=== PATIENT | male | born 1955 | race Caucasian/White ===

== ENCOUNTER → 2016-10-18 | Outpatient (CLI) | payer MEDICARE ==
[~2016-10-18] MED LIST: /OXAZ10CA OR; ASPI81TA83 OR; ASPI81TA85 PO; BABY81CH OR; CELE40TA PO; COUM7.5T PO; FAMO20TA PO; FOLI1TAB OR; FOLI1TAB2 PO; LABE10TAB PO; LIDO5DIS36 TD; LISI10TA4 OR; LISI10TA4 PO; MULTIVIT PO; NICO21DI5 TD; OXYC30TA72 PO; PERC5TAB6 PO; PLAV75TA2 OR; PROT1TAB2 PO; SERAX PO; SOMA350T OR; SOMA350T PO; TYLE325T5 PO; VITA100T2 PO; VITA50TA12 IM; VITA50TA12 OR; ZOCO20TA PO; ZOCO40TA OR; [UNRECOGNIZED DRUG - OTHER] PO; drisdol PO; normodyne PO
--- NOTE | 2016-10-18 15:57 | REP ---
PA CHEST WITH LEFT RIB SERIES, 10/18/2016: Study was performed upright. Comparison made with prior chest radiograph 04/06/2015 and 03/25/2015. The cardiomediastinal silhouette is of normal size. Interstitial changes are seen with lower lobe predominance, may be secondary to technical factors or fibrotic scarring. Minimally displaced fracture is seen within the left 6th anterior rib. Visualized portions of the clavicles, scapulae are within normal limits. IMPRESSION: 1. Minimally displaced fracture of the left 6th anterior rib. 2. Bibasilar interstitial changes may be contributed to by technical factors and/or fibrotic scarring. Signed by Anu Pérez MD 10/18/2016 10:24 P
== END ==
LOC: M LRY 14:32
PROVIDERS: ATTEND Nurse Practitioner Family
DX: S22.32XA Fracture of one rib, left side, initial encounter for closed fracture (principal); J84.89 Other specified interstitial pulmonary diseases; W31.89XA Contact with other specified machinery, initial encounter; Y92.9 Unspecified place or not applicable; Y93.89 Activity, other specified; Y99.8 Other external cause status; X58.XXXA Exposure to other specified factors, initial encounter
CPT/HCPCS: 71101; 96372; G0463; J1885

== ENCOUNTER → 2016-11-21 | Outpatient (CLI) | payer MEDICARE ==
[2016-11-21 14:45] LABS: MEAN CORPUSCULAR HEMOGLOBIN 34.8 pg (27.0-33.0); MEAN CORPUSCULAR HGB CONC 34.1 g/dl (32.0-36.5); MEAN CORPUSCULAR VOLUME 102.2 fl (80.0-96.0); RED CELL DISTRIBUTION WIDTH 12.6 % (11.5-14.5); WHITE BLOOD COUNT 5.6 K/mm3 (4.0-10.0)
[2016-11-21 15:12] LABS: ALBUMIN 3.9 GM/DL (3.2-5.2); ALBUMIN/GLOBULIN RATIO 1.26 (1.00-1.93); ALKALINE PHOSPHATASE 118 U/L (45-117); ALT/SGPT 65 U/L (12-78); ANION GAP 9 MEQ/L (8-16); AST/SGOT 58 U/L (15-37); BILIRUBIN,TOTAL 0.4 MG/DL (0.2-1.0); BLOOD UREA NITROGEN 14 MG/DL (7-18); CALCIUM LEVEL 8.8 MG/DL (8.8-10.2); CARBON DIOXIDE LEVEL 27 MEQ/L (21-32); CHLORIDE LEVEL 101 MEQ/L (98-107); CHOLESTEROL LEVEL 159 MG/DL (<200); CREATININE FOR GFR 0.88 MG/DL (0.70-1.30); GLOMERULAR FILTRATION RATE > 60.0 (>49); GLUCOSE, FASTING 97 MG/DL (80-110); POTASSIUM SERUM 4.5 MEQ/L (3.5-5.1); SODIUM LEVEL 137 MEQ/L (136-145); TRIGLYCERIDES LEVEL 55 MG/DL (<150); URIC ACID 4.4 MG/DL (3.5-7.2)
== END ==
LOC: M LAB 14:06
PROVIDERS: ATTEND Physician Assistant
DX: I10 Essential (primary) hypertension (principal); R73.09 Other abnormal glucose; E78.2 Mixed hyperlipidemia; M10.9 Gout, unspecified; E55.9 Vitamin D deficiency, unspecified

== ENCOUNTER → 2017-01-21 | Outpatient (CLI) | payer MEDICARE ==
--- NOTE | 2017-01-21 12:09 | REP ---
Right wrist four views : There is no fracture or dislocation. Mineralization and joint spaces are normal. There are no calcifications or foreign bodies. Impression: Negative right wrist . Signed by Perez Lopez MD 01/21/2017 12:01 P
--- NOTE | 2017-01-21 12:10 | REP ---
Right ankle four views: There is soft tissue edema laterally. There is no fracture or dislocation. The mortise is symmetric. Mineralization is normal. There are no calcifications or foreign bodies. Impression: Soft tissue edema laterally. No fracture or dislocation. Signed by Perez Lopez MD 01/21/2017 12:02 P
--- NOTE | 2017-01-21 12:11 | REP ---
Right foot four views: There is no fracture or dislocation. 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 Mineralization and joint spaces otherwise are unremarkable. No calcifications or foreign bodies. Signed by Perez Lopez MD 01/21/2017 12:03 P
== END ==
LOC: M LRY 11:12
PROVIDERS: ATTEND Nurse Practitioner Family
DX: R60.0 Localized edema (principal); S99.911A Unspecified injury of right ankle, initial encounter; S69.91XA Unspecified injury of right wrist, hand and finger(s), initial encounter; W18.31XA Fall on same level due to stepping on an object, initial encounter; Y93.89 Activity, other specified; Y92.9 Unspecified place or not applicable; Y99.8 Other external cause status
CPT/HCPCS: 73110; 73610; 73630; 96372; G0463; J1885

== ENCOUNTER → 2017-02-08 | Outpatient (CLI) | payer MEDICARE ==
--- NOTE | 2017-02-08 16:29 | REP ---
RIGHT FOOT: REASON: Trauma weeks ago. COMPARISON: 01/21/2017 There is a slight hallux valgus deformity with degenerative changes seen involving the first metatarsal phalangeal joint. There is no significant change compared to the prior exam. There is no evidence of an acute fracture. IMPRESSION: Chronic changes as described above, however, the patient is complaining of persistent pain. MRI is recommended. Signed by Stanislav Bran DO 02/08/2017 04:55 P
== END ==
LOC: M LRY 10:07
PROVIDERS: ATTEND Physician Assistant
DX: M79.672 Pain in left foot (principal)
CPT/HCPCS: 73630; G0463

== ENCOUNTER → 2017-10-17 | Outpatient (REF) | payer MEDICARE ==
[2017-10-17 18:28] LABS: HEMATOCRIT 38.4 % (42.0-52.0); HEMOGLOBIN 12.9 g/dl (14.0-18.0); MEAN CORPUSCULAR HEMOGLOBIN 32.9 pg (27.0-33.0); MEAN CORPUSCULAR HGB CONC 33.6 g/dl (32.0-36.5); PLATELET COUNT, AUTOMATED 202 10^3/uL (150-450); RED BLOOD COUNT 3.92 10^6/uL (4.30-6.10); RED CELL DISTRIBUTION WIDTH 12.8 % (11.5-14.5); WHITE BLOOD COUNT 5.8 10^3/uL (4.0-10.0)
[2017-10-17 18:44] LABS: ALBUMIN/GLOBULIN RATIO 1.43 (1.00-1.93); ALKALINE PHOSPHATASE 68 U/L (45-117); ALT/SGPT 24 U/L (12-78); ANION GAP 6 MEQ/L (8-16); AST/SGOT 16 U/L (7-37); BILIRUBIN,TOTAL 0.3 MG/DL (0.2-1.0); BLOOD UREA NITROGEN 15 MG/DL (7-18); CALCIUM LEVEL 8.8 MG/DL (8.8-10.2); CARBON DIOXIDE LEVEL 28 MEQ/L (21-32); CHLORIDE LEVEL 106 MEQ/L (98-107); CHOLESTEROL LEVEL 148 MG/DL (<200); CHOLESTEROL RISK RATIO 2.114 (<5); CREATININE FOR GFR 1.06 MG/DL (0.70-1.30); GLOMERULAR FILTRATION RATE > 60.0 (>49); GLUCOSE, FASTING 100 MG/DL (80-110); HDL CHOLESTEROL 70 MG/DL (>40); NON-HDL-C 78 MG/DL; POTASSIUM SERUM 4.4 MEQ/L (3.5-5.1); PSA SCREENING 2.28 NG/ML (< 4.0); SODIUM LEVEL 140 MEQ/L (136-145); TOTAL PROTEIN 6.8 GM/DL (6.4-8.2); TRIGLYCERIDES LEVEL 65 MG/DL (<150); URIC ACID 4.5 MG/DL (3.5-7.2)
[2017-10-17 18:56] LABS: ESTIMATED AVERAGE GLUCOSE 103 MG/DL (60-110); HEMOGLOBIN A1c 5.2 %
== END ==
LOC: M SFHCLERA 12:36
DX: I10 Essential (primary) hypertension (principal); R73.01 Impaired fasting glucose; Z86.73 Personal history of transient ischemic attack (TIA), and cerebral infarction without residual deficits; R97.20 Elevated prostate specific antigen [PSA]; M1A.0720 Idiopathic chronic gout, left ankle and foot, without tophus (tophi)
CPT/HCPCS: 84550

== ENCOUNTER → 2017-12-10 | Outpatient (REF) | payer MEDICARE ==
[2017-12-10 15:51] LABS: ALBUMIN 3.8 GM/DL (3.2-5.2); ANION GAP 5 MEQ/L (8-16); BLOOD UREA NITROGEN 16 MG/DL (7-18); CALCIUM LEVEL 8.8 MG/DL (8.8-10.2); CARBON DIOXIDE LEVEL 28 MEQ/L (21-32); CHLORIDE LEVEL 106 MEQ/L (98-107); CREATININE FOR GFR 0.96 MG/DL (0.70-1.30); GLOMERULAR FILTRATION RATE > 60.0 (>49); GLUCOSE, FASTING 92 MG/DL (70-100); PHOSPHORUS LEVEL 3.7 MG/DL (2.5-4.9); POTASSIUM SERUM 4.4 MEQ/L (3.5-5.1); SODIUM LEVEL 139 MEQ/L (136-145)
== END ==
LOC: M LABDRAW1 13:14
DX: M25.511 Pain in right shoulder (principal)
CPT/HCPCS: 80069

== ENCOUNTER → 2017-12-11 | Outpatient (CLI) | payer MEDICARE ==
[~2017-12-11] MED LIST changes: -/OXAZ10CA OR; -ASPI81TA83 OR; -ASPI81TA85 PO; -BABY81CH OR; -CELE40TA PO; -COUM7.5T PO; -FAMO20TA PO; -FOLI1TAB OR; -FOLI1TAB2 PO; -LABE10TAB PO; -LIDO5DIS36 TD; -LISI10TA4 OR; -LISI10TA4 PO; -MULTIVIT PO; -NICO21DI5 TD; -OXYC30TA72 PO; -PERC5TAB6 PO; -PLAV75TA2 OR; +PROHANCE 279.3MG/ML 15ML VIAL (A9576) As Ordered; +PROHANCE 279.3MG/ML 5ML VIAL (A9576) As Ordered; -PROT1TAB2 PO; -SERAX PO; -SOMA350T OR; -SOMA350T PO; -TYLE325T5 PO; -VITA100T2 PO; -VITA50TA12 IM; -VITA50TA12 OR; -ZOCO20TA PO; -ZOCO40TA OR; -[UNRECOGNIZED DRUG - OTHER] PO; -drisdol PO; -normodyne PO
== END ==
LOC: M RAD 13:44
DX: R93.7 Abnormal findings on diagnostic imaging of other parts of musculoskeletal system (principal); M75.82 Other shoulder lesions, left shoulder; M25.712 Osteophyte, left shoulder
CPT/HCPCS: A9576

== ENCOUNTER → 2018-02-12 | Outpatient (REF) | payer MEDICARE ==
[2018-02-12 17:09] LABS: VITAMIN B12 LEVEL 1251 PG/ML (247-911)
[2018-02-12 17:14] LABS: ALBUMIN 4.2 GM/DL (3.2-5.2); ALKALINE PHOSPHATASE 76 U/L (45-117); ALT/SGPT 28 U/L (12-78); ANION GAP 8 MEQ/L (8-16); AST/SGOT 23 U/L (7-37); BILIRUBIN,TOTAL 0.5 MG/DL (0.2-1.0); BLOOD UREA NITROGEN 18 MG/DL (7-18); CALCIUM LEVEL 9.1 MG/DL (8.8-10.2); CARBON DIOXIDE LEVEL 26 MEQ/L (21-32); CHLORIDE LEVEL 99 MEQ/L (98-107); CREATININE FOR GFR 1.06 MG/DL (0.70-1.30); FERRITIN 65 NG/ML (26-388); GLOMERULAR FILTRATION RATE > 60.0 (>49); GLUCOSE, FASTING 100 MG/DL (70-100); IRON (FE) 79 UG/DL (65-175); POTASSIUM SERUM 5.1 MEQ/L (3.5-5.1); SODIUM LEVEL 133 MEQ/L (136-145); THYROID STIMULATING HORMONE 0.847 uIU/ML (0.358-3.740); TOTAL PROTEIN 7.2 GM/DL (6.4-8.2)
[2018-02-12 17:57] LABS: HEMATOCRIT 38.9 % (42.0-52.0); HEMOGLOBIN 13.3 g/dl (13.5-17.5); MEAN CORPUSCULAR HGB CONC 34.2 g/dl (32.0-36.5); MEAN CORPUSCULAR VOLUME 96.5 fl (80.0-96.0); PLATELET COUNT, AUTOMATED 220 10^3/uL (150-450); RED BLOOD COUNT 4.03 10^6/uL (4.30-6.10); RED CELL DISTRIBUTION WIDTH 12.5 % (11.5-14.5); WHITE BLOOD COUNT 6.7 10^3/uL (4.0-10.0)
== END ==
LOC: M SFHCLERA 12:20
DX: R53.83 Other fatigue (principal)
CPT/HCPCS: 83540

== ENCOUNTER → 2018-02-12 | Outpatient (CLI) | payer MEDICARE | LOC: M LRY 12:29 | DX: S97.122A Crushing injury of left lesser toe(s), initial encounter (principal); S92.532A Displaced fracture of distal phalanx of left lesser toe(s), initial encounter for closed fracture; X58.XXXA Exposure to other specified factors, initial encounter; Y92.89 Other specified places as the place of occurrence of the external cause; M19.072 Primary osteoarthritis, left ankle and foot | CPT/HCPCS: 73630; 83540 ==

== ENCOUNTER → 2018-11-12 | Outpatient (REF) | payer MEDICARE ==
[~2018-11-12] MED LIST changes: +/OXAZ10CA OR; +ASPI81TA83 OR; +ASPI81TA85 PO; +BABY81CH OR; +CELE40TA PO; +COUM7.5T PO; +FAMO20TA PO; +FOLI1TAB OR; +FOLI1TAB11 PO; +LABE10TAB PO; +LIDO5DIS41 TD; +LISI10TA4 OR; +LISI10TA4 PO; +MULTIVIT PO; +NICO21DI6 TD; +OXYC30TA72 PO; +PERC5TAB12 PO; +PLAV75TA2 OR; -PROHANCE 279.3MG/ML 15ML VIAL (A9576) As Ordered; -PROHANCE 279.3MG/ML 5ML VIAL (A9576) As Ordered; +PROT1TAB2 PO; +SERAX PO; +SOMA350T OR; +SOMA350T PO; +TYLE325T5 PO; +VITA100T8 PO; +VITA50TA12 IM; +VITA50TA12 OR; +ZOCO20TA PO; +ZOCO40TA OR; +[UNRECOGNIZED DRUG - OTHER] PO; +drisdol PO; +normodyne PO
[2018-11-12 17:56] LABS: ALBUMIN 4.2 GM/DL (3.2-5.2); ALT/SGPT 23 U/L (12-78); BILIRUBIN,TOTAL 0.4 MG/DL (0.2-1.0); BLOOD UREA NITROGEN 18 MG/DL (7-18); CALCIUM LEVEL 8.8 MG/DL (8.8-10.2); CARBON DIOXIDE LEVEL 26 MEQ/L (21-32); CHLORIDE LEVEL 94 MEQ/L (98-107); CHOLESTEROL LEVEL 135 MG/DL (<200); CHOLESTEROL RISK RATIO 1.776 (<5); FREE T4 0.84 NG/DL (0.76-1.46); GLOMERULAR FILTRATION RATE > 60.0 (>49); GLUCOSE, FASTING 85 MG/DL (70-100); HDL CHOLESTEROL 76 MG/DL (>40); LDL CHOLESTEROL 49 MG/DL (<100); NON-HDL-C 59 MG/DL; POTASSIUM SERUM 3.8 MEQ/L (3.5-5.1); SODIUM LEVEL 130 MEQ/L (136-145); THYROID STIMULATING HORMONE 0.878 uIU/ML (0.358-3.740); TOTAL PROTEIN 7.2 GM/DL (6.4-8.2); TRIGLYCERIDES LEVEL 49 MG/DL (<150); URIC ACID 5.6 MG/DL (3.5-7.2)
[2018-11-12 18:02] LABS: HEMATOCRIT 39.2 % (42.0-52.0); HEMOGLOBIN 13.5 g/dl (13.5-17.5); MEAN CORPUSCULAR HEMOGLOBIN 33.8 pg (27.0-33.0); MEAN CORPUSCULAR HGB CONC 34.4 g/dl (32.0-36.5); PLATELET COUNT, AUTOMATED 221 10^3/uL (150-450); WHITE BLOOD COUNT 6.7 10^3/uL (4.0-10.0)
[2018-11-14 13:59] LABS: ALBUMIN % 62.3 % (55.8-66.1); ALPHA-1-GLOBULIN % 4.7 % (2.9-4.9); ALPHA-2-GLOBULINS % 10.3 % (7.1-11.8); BETA-1-GLOBULINS % 6.4 % (4.7-7.2); BETA-2-GLOBULINS % 4.2 % (3.2-6.5)
[2018-11-14 14:00] LABS: ALBUMIN 4.49 GM/DL (3.29-5.55); ALPHA-1-GLOBULINS 0.34 GM/DL (0.17-0.41); ALPHA-2-GLOBULINS 0.74 GM/DL (0.42-0.99); BETA-1-GLOBULINS 0.46 GM/DL (0.28-0.60); GAMMA GLOBULIN % 12.1 % (11.1-18.8); GAMMA GLOBULINS 0.87 GM/DL (0.65-1.58)
[2018-11-20 00:07] LABS: ANTI THROMBIN 3 ANTIGEN IMMUNO 90 % (72-124); ANTI THROMBIN 3 FUNCT ACTIVITY 109 % (75-135); CARDIOLIPIN IGA ANTIBODY <9 APL U/mL (0-11); CARDIOLIPIN IGG ANTIBODY <9 GPL U/mL (0-14); CARDIOLIPIN IGM ANTIBODY <9 MPL U/mL (0-12); PROTEIN C ANTIGEN 90 % (60-150); PROTEIN C FUNCTIONAL ACTIVITY 109 % (73-180); PROTEIN S ANTIGEN FREE 59 % (57-157); PROTEIN S ANTIGEN TOTAL 46 % (60-150); PROTEIN S FUNCTIONAL ACTIVITY 66 % (63-140)
== END ==
LOC: M SFHCADAM 14:47
PROVIDERS: ATTEND Family Medicine
DX: I81 Portal vein thrombosis (principal); E78.2 Mixed hyperlipidemia; R97.20 Elevated prostate specific antigen [PSA]; M1A.0720 Idiopathic chronic gout, left ankle and foot, without tophus (tophi)
CPT/HCPCS: 80053; 80061; 81240; 81241; 84165; 84439; 84443; 84550; 85027; 85300; 85301; 85302; 85303; 85305; 85306; 86147; G0103; G0463

== ENCOUNTER → 2018-11-20 | Outpatient (CLI) | payer MEDICARE ==
--- NOTE | 2018-11-20 15:51 | REP ---
ABDOMEN ULTRASOUND COMPLETE WITH ABDOMINAL VENOUS DOPPLER ULTRASOUND: 11/20/2018. Clinical history: Evaluate for possible portal vein thrombosis. Prior history of pancreatitis. Comparison: 03/20/2015. Abdominal ultrasound: Sonographic evaluation of the abdomen shows the liver homogeneous except for one focal hyperechoic zone in the left lobe with an echogenic focus of 1.4 x 1.3 x 0.8 cm. This is suggestive of hemangioma. The gallbladder shows no stone, sludge or pericholecystic fluid. Wall thickness is normal. No sonographic Vila's sign. Common duct is 6.6 mm, upper range normal. No filling defects seen. Pancreas was grossly unremarkable. The spleen measured 9.6 x 8.8 x 3.3 cm. No focal splenic lesion. The right kidney is 11.5 x 6.3 x 5.6 cm and the left is 11.8 x 5.4 x 5.8 cm. There may be some calcified vessels in the left hilum. No significant renal abnormality. The abdominal aorta has a maximum AP diameter 3 cm below the aortic hiatus, 2.4 cm at the renal artery level and 2.3 cm at the bifurcation. No aneurysm. No generalized ascites. The main portal vein has a diameter of 1.7 cm. On the previous study it was 1.5 cm. Paucity for the main portal vein 36.1 cm/s slightly elevated. The right portal vein and left portal vein show normal velocities. Direction of flow is normal throughout. There is no filling defect in the main right or left portal veins on this study to suggest portal vein thrombosis. The right middle and left hepatic veins show flow towards the IVC, normal. Splenic vein shows velocity 19 cm/s near its confluents and 18.4 cm/s near its hilus. No mass. The superior mesenteric vein is obscured by gas shadowing. Impression: 1. Some echogenic focus partially right hepatic lobe most suggestive of a hemangioma 1.4 x 1.3 x 0.8 cm. 2. Slight enlargement of the main portal vein with slight elevation of portal vein velocity but blood flow in the portal and splenic vein as well as the intrahepatic portal branches in the correct direction. The hepatic veins also have normal direction of flow. 3. No evidence of portal vein thrombosis. 4. Otherwise negative study. Electronically Signed by Man Nava MD 11/20/2018 09:25 P
== END ==
LOC: M RAD 10:11
PROVIDERS: ATTEND Family Medicine
DX: K76.89 Other specified diseases of liver (principal)

== ENCOUNTER 2018-12-14 11:53 | Emergency (ER) | payer MEDICARE ==
[~2018-12-14] VITALS: Ht 182.9 cm; Wt 81.8 kg
[2018-12-14] MEDS ORDERED: DULO1CAP3 (12:08)
[2018-12-14] MEDS ORDERED: SPIR-10 (12:08)
[2018-12-14] MEDS ORDERED: FURO40TA2 (12:08)
[2018-12-14] MEDS ORDERED: FAMO1TAB11 (12:08)
[2018-12-14] MEDS ORDERED: DICL75TA (12:08)
[2018-12-14] MEDS ORDERED: SIMV20TA2 (12:08)
[2018-12-14] MEDS ORDERED: ASPI81TA85 PO (12:08)
[2018-12-14] MEDS ORDERED: IBUP80TA (12:08)
[2018-12-14] MEDS ORDERED: CARV3.12 (12:08)
[2018-12-14] MEDS ORDERED: VITA200015 PO (12:10)
[2018-12-14] MEDS ORDERED: VITA500064 PO (12:10)
[2018-12-14] MEDS ORDERED: KETOROLAC 30 MG/ML VIAL (J1885) IV ONE (13:00)
[2018-12-14 13:48] LABS: BASO % 0.3 % (0.0-1.0); EOS # 0.2 10^3/uL (0.0-0.50); EOS % 3.2 % (0.0-3.0); HEMATOCRIT 39.4 % (42.0-52.0); HEMOGLOBIN 13.5 g/dl (13.5-17.5); LYMPH # 1.7 10^3/uL (1.5-4.5); LYMPH % 22.8 % (24.0-44.0); MEAN CORPUSCULAR HEMOGLOBIN 32.5 pg (27.0-33.0); MEAN CORPUSCULAR HGB CONC 34.3 g/dl (32.0-36.5); MEAN CORPUSCULAR VOLUME 94.9 fl (80.0-96.0); MONO # 0.6 10^3/uL (0.0-0.8); MONO % 8.1 % (0.0-5.0); NEUTROPHILS # 4.8 10^3/uL (1.8-7.7); NEUTROPHILS % 65.3 % (36.0-66.0); PLATELET COUNT, AUTOMATED 235 10^3/uL (150-450); RED BLOOD COUNT 4.15 10^6/uL (4.30-6.10); WHITE BLOOD COUNT 7.3 10^3/uL (4.0-10.0)
--- NOTE | 2018-12-14 14:12 | REP ---
Chest two views HISTORY: Chest pain Comparison: 10/18/2016 The lungs are clear. The heart is normal in size. The pulmonary vasculature is normal in appearance. The bony structure is intact. IMPRESSION: No acute disease. Electronically Signed by Kali Duncan MD 12/14/2018 02:03 P
[2018-12-14 14:15] LABS: BLOOD UREA NITROGEN 16 MG/DL (7-18); CALCIUM LEVEL 8.9 MG/DL (8.8-10.2); CARBON DIOXIDE LEVEL 27 MEQ/L (21-32); CHLORIDE LEVEL 99 MEQ/L (98-107); CREATININE FOR GFR 1.03 MG/DL (0.70-1.30); GLOMERULAR FILTRATION RATE > 60.0 (>49); GLUCOSE, FASTING 108 MG/DL (70-100); POTASSIUM SERUM 3.9 MEQ/L (3.5-5.1); SODIUM LEVEL 132 MEQ/L (136-145)
[2018-12-14 14:16] LABS: INR 0.99; PROTHROMBIN TIME 13.2 SECONDS (12.1-14.4)
--- NOTE | 2018-12-14 14:26 | REP ---
Bilateral shoulder six views HISTORY: Rule out fracture. Right shoulder There is a nondisplaced fracture of the inferior lateral acromion process. There is no dislocation. The joint spaces are normal in appearance. Impression: Nondisplaced fracture of the acromion. Left shoulder There is no acute fracture or dislocation. The joint spaces are normal in appearance. There is an old fracture of the left eighth rib. Impression: There is no acute fracture or dislocation. Electronically Signed by Kali Duncan MD 12/14/2018 02:34 P
[2018-12-14] MEDS ORDERED: ISOVUE-370 76% 125ML VIAL (Q9967 PER ML) As Ordered ONE (14:27)
--- NOTE | 2018-12-14 14:28 | REP ---
RIGHT CLAVICLE, TWO VIEWS: HISTORY: Rule out fracture. There is a nondisplaced fracture of the inferior lateral acromion process . There is no dislocation. The joint spaces are normal in appearance. IMPRESSION: Fracture of the right acromion. Electronically Signed by Kali Duncan MD 12/14/2018 02:34 P
[2018-12-14] MEDS: MORPHINE 4 MG/ML 1ML VIAL/SYRINGE (J2270) IV PRN ×2 (14:38→17:07)
[2018-12-14 17:38] VITALS: BP 133/75
--- NOTE | 2018-12-15 07:25 | REP ---
CT CHEST WITH CONTRAST: HISTORY: Chest pain. CONTRAST: Isovue 370, 75 mL. COMPARISON: 11/15/2012 A calcified granuloma is present in the right middle lobe. The left lung is clear. There is no pleural effusion. The heart is normal in size. There is no aneurysm. Atherosclerotic calcification is present in the thoracic aorta. Degenerative change is present in the spine. There is an old healed fracture of the left 8th rib. There is a comminuted fracture of the proximal right clavicle. Edema is present in the overlying subcutaneous tissue. IMPRESSION: Comminute fracture of the proximal right clavicle. Electronically Signed by Kali Duncan MD 12/15/2018 08:02 A
--- NOTE | 2018-12-15 18:39 | ECGEPIP ---
Stationary ECG Study [facility] - ED Test Date: 2018-12-14 Pat Name: DIOGENES WOOD Department: Room: - Gender: M Interior Design Assistant: VIKASH : 1955 Requested By: Janeth Moser PA-C Order Number: [id number] Reading MD: Elly Rojas Measurements Intervals [place] Rate: 55 P: -31 DC: 135 QRS: -18 QRSD: 111 T: 27 QT: 424 QTc: 408 Interpretive Statements SINUS BRADYCARDIA ANTEROSEPTAL MYOCARDIAL INFARCTION, OF INDETERMINATE AGE DECREASED RATE 04/28/15 Electronically Signed On 12-15-2018 18:39:12 EDT by Elly Rojas
== END 2018-12-14 17:45 | disposition home or self-care (01) ==
LOC: M ED 11:53
DX: S42.034A Nondisplaced fracture of lateral end of right clavicle, initial encounter for closed fracture (principal); W00.0XXA Fall on same level due to ice and snow, initial encounter; Y92.89 Other specified places as the place of occurrence of the external cause; Y93.01 Activity, walking, marching and hiking; Y99.8 Other external cause status; I10 Essential (primary) hypertension; F17.210 Nicotine dependence, cigarettes, uncomplicated; E78.00 Pure hypercholesterolemia, unspecified; M54.9 Dorsalgia, unspecified; Z79.899 Other long term (current) drug therapy
CPT/HCPCS: 71046; 71260; 73000; 73030; 80048; 85025; 85610; 93005; 99284; J1885; J2270; Q9967

== ENCOUNTER → 2019-03-05 | Outpatient (CLI) | payer MEDICARE ==
[~2019-03-05] MED LIST changes: -/OXAZ10CA OR; +CARV3.12; +DICL75TA; +DULO1CAP3; +FAMO1TAB11; +FURO40TA2 PO; +IBUP80TA PO; +OXAZ10CA25 OR; +SIMV20TA2; +SPIR-10; +VITA200015 PO; +VITA500064 PO
--- NOTE | 2019-03-05 09:22 | REP ---
ULTRASOUND LEFT LOWER LEG: Real-time sonographic evaluation of the left lower leg performed posteriorly at the site of swelling and redness. At that location of swelling there is a heterogeneously hypoechoic area measuring 1.1 x 0.6 x 1.3 cm, superficial to the lesser saphenous vein. There appears to be inflamed echogenic fat surrounding this. The findings are most consistent with focal phlegmonous change and inflammation. There does not appear to be a drainable abscess at this time. Electronically Signed by Perez Casarez MD 03/06/2019 08:52 A
== END ==
LOC: M RAD 06:40
PROVIDERS: ATTEND Family Medicine
DX: L02.419 Cutaneous abscess of limb, unspecified (principal); I87.8 Other specified disorders of veins

== ENCOUNTER 2019-03-17 10:35 | Day surgery (SDC) | payer MEDICARE ==
[~2019-03-17] VITALS: Ht 180.3 cm; Wt 73.9 kg
[~2019-03-17 10:35] MED LIST changes: +NS 1,000 ML IV ONE
[2019-03-17] MEDS ORDERED: LIDOCAINE 2% INJ 100 MG/5 ML SDV (FOR ANES.) As Ordered ONE (10:37)
[2019-03-17] MEDS ORDERED: PROPOFOL 200 MG/20 ML VIAL As Ordered ONE (10:37)
[2019-03-17] MEDS ORDERED: fentaNYL 100 MCG/2 ML INJECTION (J3010) As Ordered ONE (11:33)
--- NOTE | 2019-03-17 11:48 | ROOR ---
Patient Name: Nawaf Sampson Procedure Date: 03/17/2019 11:31 AM Date of : 1955 Age: 63 Room: [facility] Gender: Male Note Status: Finalized Procedure: Upper Endoscopy + Biopsies Indications: Heartburn, Exclusion of Lugo's esophagus, Follow-up of Lugo's esophagus Providers: Negrito Alvarado MD Referring MD: Eduardo Lowe MD Requesting Provider: Medicines: Monitored Anesthesia Care Complications: No immediate complications. Procedure: Pre-Anesthesia Assessment: - The heart rate, respiratory rate, oxygen saturations, blood pressure, adequacy of pulmonary ventilation, and response to care were monitored throughout the procedure. The Endoscope was introduced through the mouth, and advanced to the second part of duodenum. The upper GI endoscopy was accomplished without difficulty. The patient tolerated the procedure well. Findings: The Z-line was variable and was found 40 cm from the incisors. Multiple biopsies were obtained with cold forceps for evaluation to rule out Lugo's Esophagus randomly at the gastroesophageal junction. A small hiatal hernia was present. No other significant abnormalities were identified in a careful examination of the stomach. The exam of the duodenum was otherwise normal. Impression: - Z-line variable, 40 cm from the incisors. - Small hiatal hernia. - Multiple biopsies were obtained at the gastroesophageal junction. - The examination was otherwise normal. Recommendation: - Patient has a contact number available for emergencies. The signs and symptoms of potential delayed complications were discussed with the patient. Return to normal activities tomorrow. Written discharge instructions were provided to the patient. - High fiber diet. - Discharge patient to home. - Follow an antireflux regimen. - Continue present medications. - Await pathology results. - Telephone GI clinic for pathology results in 1 week. - Return to referring physician. - The findings and recommendations were discussed with the patient's family. Negrito Alvarado MD Negrito Alvarado MD 03/17/2019 11:48:20 AM Electronically signed by Negrito Alvarado MD Number of Addenda: 0 Note Initiated On: 03/17/2019 11:31 AM Estimated Blood Loss: Estimated blood loss: none.
[2019-03-17 12:05] VITALS: BP 113/68
== END 2019-03-17 12:16 | disposition home or self-care (01) ==
LOC: M OPP 10:35
PROVIDERS: ATTEND Internal Medicine Gastroenterology
DX: R12 Heartburn (principal); K22.8 Other specified diseases of esophagus; K44.9 Diaphragmatic hernia without obstruction or gangrene; K22.70 Barrett's esophagus without dysplasia; Z79.82 Long term (current) use of aspirin; Z79.899 Other long term (current) drug therapy; Z87.891 Personal history of nicotine dependence
CPT/HCPCS: 43239; 88305; J3010

== ENCOUNTER → 2019-05-01 | Outpatient (REF) | payer MEDICARE ==
[~2019-05-01] MED LIST changes: -DULO1CAP3; +DULO1CAP6; -NS 1,000 ML IV ONE; +OXYC10TA3 PO
[2019-05-01 16:06] LABS: HEMATOCRIT 38.8 % (42.0-52.0); HEMOGLOBIN 13.1 g/dl (13.5-17.5); MEAN CORPUSCULAR HEMOGLOBIN 32.7 pg (27.0-33.0); MEAN CORPUSCULAR HGB CONC 33.8 g/dl (32.0-36.5); MEAN CORPUSCULAR VOLUME 96.8 fl (80.0-96.0); PLATELET COUNT, AUTOMATED 249 10^3/uL (150-450); RED BLOOD COUNT 4.01 10^6/uL (4.30-6.10); WHITE BLOOD COUNT 6.6 10^3/uL (4.0-10.0)
[2019-05-01 16:40] LABS: ALBUMIN 3.6 GM/DL (3.2-5.2); ALT/SGPT 23 U/L (12-78); BILIRUBIN,TOTAL 0.7 MG/DL (0.2-1.0); BLOOD UREA NITROGEN 17 MG/DL (7-18); CALCIUM LEVEL 9.2 MG/DL (8.8-10.2); CARBON DIOXIDE LEVEL 30 MEQ/L (21-32); CHLORIDE LEVEL 98 MEQ/L (98-107); CREATININE FOR GFR 0.88 MG/DL (0.70-1.30); GLOMERULAR FILTRATION RATE > 60.0 (>49); GLUCOSE, FASTING 89 MG/DL (70-100); POTASSIUM SERUM 4.6 MEQ/L (3.5-5.1); SODIUM LEVEL 133 MEQ/L (136-145); TOTAL PROTEIN 6.5 GM/DL (6.4-8.2)
== END ==
LOC: M SFHCPLAZ 14:19
PROVIDERS: ATTEND Family Medicine
DX: Z01.818 Encounter for other preprocedural examination (principal)
CPT/HCPCS: 36415; 80053; 85027; 93005; G0463

== ENCOUNTER 2019-05-06 06:10 | Day surgery (SDC) | payer MEDICARE ==
[~2019-05-06] VITALS: Ht 182.9 cm; Wt 72.6 kg
[~2019-05-06 06:10] MED LIST changes: +LIDOCAINE 1% MDV 20ML VIAL SQ PRN
[2019-05-06] MEDS ORDERED: ceFAZolin 2 GM/D5W 50 ML IV BAG (J0690 PER 500MG) As Ordered ONE (06:46)
[2019-05-06] MEDS ORDERED: DESFLURANE 240 ML INHALANT As Ordered ONE (06:54)
[2019-05-06] MEDS ORDERED: PROPOFOL 200 MG/20 ML VIAL As Ordered ONE (07:03)
[2019-05-06] MEDS ORDERED: ROCURONIUM BROMIDE 50 MG/5 ML VIAL As Ordered ONE ×2 (07:04→08:16)
[2019-05-06] MEDS ORDERED: dexameTHASONE 4 MG/ML 1ML VIAL (J1100) As Ordered ONE (07:04)
[2019-05-06] MEDS ORDERED: ONDANSETRON 4MG/2ML VIAL (J2405) As Ordered ONE (07:04)
[2019-05-06] MEDS ORDERED: LIDOCAINE 2% INJ 100 MG/5 ML SDV (FOR ANES.) As Ordered ONE (07:04)
[2019-05-06] MEDS ORDERED: fentaNYL 250 MCG/5 ML INJECTION (J3010) As Ordered ONE (07:08)
[2019-05-06] MEDS ORDERED: MIDAZOLAM INJ 2 MG/2 ML VIAL (J2250) As Ordered ONE (07:08)
[2019-05-06] MEDS ORDERED: BUPIVACAINE HCL 0.25% 30 ML VIAL As Ordered ONE ×2 (07:10→07:11)
[2019-05-06] MEDS ORDERED: LIDOCAINE 1% SDV INJ 30 ML VIAL As Ordered ONE (07:10)
[2019-05-06] MEDS ORDERED: LR 1,000 ML IV ONE (07:45)
[2019-05-06] MEDS ORDERED: ACETAMINOPHEN 1000MG 100ML IV BTL (OFIRMEV) (J0131 PER 10MG) As Ordered ONE ×2 (08:21→10:29)
[2019-05-06] MEDS ORDERED: SUGAMMADEX SODIUM 500 MG/5 ML VIAL (BRIDION) As Ordered ONE ×2 (08:21→10:58)
[2019-05-06] MEDS ORDERED: KETAMINE HCL 200 MG/20 ML VIAL As Ordered ONE (08:31)
[2019-05-06] MEDS ORDERED: KETOROLAC 60 MG/2 ML VIAL (J1885) As Ordered ONE (08:40)
--- NOTE | 2019-05-06 09:36 | ROOPDOC ---
[facility] Report Of Operation Report of Operation DATE OF PROCEDURE: 05/06/19 PREPROCEDURE DIAGNOSES: right inguinal hernia. POSTPROCEDURE DIAGNOSES: right (primary direct, small indirect) inguinal hernia. PROCEDURE: Robotic Assisted Laparoscopic Right Inguinal Hernia Repair with mesh (NIKKY, 15 x 10 cm parietex composite mesh). SURGEON: Leesa Dean MD ANIMAL CARE GIVER: Liberty Puga NP ANESTHESIA: General Anesthesia. ESTIMATED BLOOD LOSS: Approximately 20 mL. COMPLICATIONS: . REMARKS: mesh [id number], small puncture wound to edge of right lobe of liver from veress needle PROCEDURE NOTE: . DESCRIPTION OF PROCEDURE: . LEESA DEAN MD May 06, 2019 09:36
[2019-05-06] MEDS ORDERED: ONDANSETRON 4MG/2ML VIAL (J2405) IV PRN ×2 (09:45→10:00)
[2019-05-06] MEDS ORDERED: oxyCODONE 5MG TAB PO PRN (09:45)
[2019-05-06] MEDS ORDERED: LR 1,000 ML IV SCH (09:45)
[2019-05-06] MEDS ORDERED: KETOROLAC 30 MG/ML VIAL (J1885) IV PRN ×2 (10:00→15:00)
[2019-05-06] MEDS ORDERED: fentaNYL 100 MCG/2 ML INJECTION (J3010) As Ordered ONE (10:21)
[2019-05-06] MEDS: fentaNYL 100 MCG/2 ML INJECTION (J3010) IV PRN ×4 (10:23→10:38)
[2019-05-06] MEDS ORDERED: PHENYLephrine HCL 500 MCG/5 ML (100MCG/ML) SYRINGE (J2370) As Ordered ONE (10:26)
[2019-05-06 11:50] VITALS: BP 145/82
== END 2019-05-06 12:00 | disposition home or self-care (01) ==
LOC: M SDC 06:10
PROVIDERS: ATTEND Surgery
DX: K40.90 Unilateral inguinal hernia, without obstruction or gangrene, not specified as recurrent (principal); K91.71 Accidental puncture and laceration of a digestive system organ or structure during a digestive system procedure; I10 Essential (primary) hypertension; E78.5 Hyperlipidemia, unspecified; K21.9 Gastro-esophageal reflux disease without esophagitis; G47.30 Sleep apnea, unspecified; F17.210 Nicotine dependence, cigarettes, uncomplicated; Z79.82 Long term (current) use of aspirin; Z79.899 Other long term (current) drug therapy; Z86.73 Personal history of transient ischemic attack (TIA), and cerebral infarction without residual deficits
CPT/HCPCS: 49650; C1781; J0131; J0690; J1100; J1885; J2250; J2370; J2405; J3010

== ENCOUNTER → 2019-05-29 | Outpatient (REF) | payer MEDICARE ==
[~2019-05-29] MED LIST changes: -LIDOCAINE 1% MDV 20ML VIAL SQ PRN
[2019-05-29 16:01] LABS: BASO % 0.5 % (0.0-1.0); EOS # 0.2 10^3/uL (0.0-0.50); EOS % 3.2 % (0.0-3.0); HEMATOCRIT 38.8 % (42.0-52.0); HEMOGLOBIN 13.3 g/dl (13.5-17.5); LYMPH # 1.7 10^3/uL (1.5-4.5); LYMPH % 26.2 % (24.0-44.0); MEAN CORPUSCULAR HEMOGLOBIN 34.1 pg (27.0-33.0); MEAN CORPUSCULAR HGB CONC 34.3 g/dl (32.0-36.5); MEAN CORPUSCULAR VOLUME 99.5 fl (80.0-96.0); MONO # 0.5 10^3/uL (0.0-0.8); MONO % 7.1 % (0.0-5.0); NEUTROPHILS # 4.2 10^3/uL (1.8-7.7); NEUTROPHILS % 62.7 % (36.0-66.0); PLATELET COUNT, AUTOMATED 209 10^3/uL (150-450); WHITE BLOOD COUNT 6.6 10^3/uL (4.0-10.0)
[2019-05-29 16:24] LABS: BLOOD UREA NITROGEN 19 MG/DL (7-18); C REACTIVE PROTEIN QUANTITATIV < 0.30 MG/DL (0.00-0.30); CALCIUM LEVEL 9.2 MG/DL (8.8-10.2); CARBON DIOXIDE LEVEL 28 MEQ/L (21-32); CHLORIDE LEVEL 100 MEQ/L (98-107); CREATININE FOR GFR 1.09 MG/DL (0.70-1.30); GLOMERULAR FILTRATION RATE > 60.0 (>49); GLUCOSE, FASTING 88 MG/DL (70-100); POTASSIUM SERUM 4.8 MEQ/L (3.5-5.1); SODIUM LEVEL 133 MEQ/L (136-145)
[2019-05-29 16:25] LABS: APPEARANCE, URINE CLEAR (CLEAR); BACTERIA, URINE AUTO NEGATIVE (NEGATIVE); BILIRUBIN, URINE AUTO NEGATIVE (NEGATIVE); BLOOD, URINE BLOOD NEGATIVE (NEGATIVE); COLOR, URINE YELLOW (YELLOW); GLUCOSE, URINE (UA) AUTO NEGATIVE (NEGATIVE); KETONE, URINE AUTO NEGATIVE (NEGATIVE); LEUKOCYTE ESTERASE, URINE AUTO NEGATIVE (NEGATIVE); NITRITE, URINE AUTO NEGATIVE (NEGATIVE); PROTEIN, URINE AUTO NEGATIVE (NEGATIVE); RBC, URINE AUTO 2 /HPF (0-3); SPECIFIC GRAVITY URINE AUTO 1.013 (1.002-1.035); SQUAMOUS EPITHELIAL CELL UR AU 0 /HPF (0-6); UROBILINOGEN, URINE AUTO 0.2 mg/dL (0.0-2.0); WBC, URINE AUTO 1 /HPF (0-3)
[2019-05-29 20:05] LABS: ERYTHROCYTE SEDIMENTATION RATE 3 mm/hr (0-20)
== END ==
LOC: M LABDRAW1 12:39
PROVIDERS: ATTEND Family Medicine
DX: N41.0 Acute prostatitis (principal)
CPT/HCPCS: 36415; 51798; 80048; 81001; 81002; 85025; 85652; 86140; 87086; G0463

== ENCOUNTER 2019-09-15 13:43 | Emergency (ER) | payer MEDICARE ==
[~2019-09-15] VITALS: Ht 180.3 cm; Wt 71.9 kg
[~2019-09-15 13:43] MED LIST changes: -SIMV20TA2; +SIMV20TA22
[2019-09-15] MEDS ORDERED: PANTOPRAZOLE 40MG INJ (PROTONIX) (C9113) IV ONE (14:45)
[2019-09-15] MEDS ORDERED: ONDANSETRON 4MG/2ML VIAL (J2405) IV ONE (14:45)
[2019-09-15] MEDS ORDERED: NS 1,000 ML IV ONE (14:45)
[2019-09-15] MEDS ORDERED: ISOVUE-370 76% 100ML VIAL (Q9967) As Ordered ONE (15:13)
[2019-09-15 15:19] LABS: BASO % 0.4 % (0.0-1.0); EOS # 0.2 10^3/uL (0.0-0.5); EOS % 4.1 % (0.0-3.0); HEMATOCRIT 32.8 % (42.0-52.0); HEMOGLOBIN 11.6 g/dl (13.5-17.5); LYMPH % 42.5 % (24.0-44.0); MEAN CORPUSCULAR HGB CONC 35.4 g/dl (32.0-36.5); MEAN CORPUSCULAR VOLUME 96.2 fl (80.0-96.0); MONO # 0.4 10^3/uL (0.0-0.8); MONO % 8.6 % (0.0-5.0); NEUTROPHILS # 2.1 10^3/uL (1.5-8.5); NEUTROPHILS % 44.2 % (36.0-66.0); PLATELET COUNT, AUTOMATED 178 10^3/uL (150-450); RED BLOOD COUNT 3.41 10^6/uL (4.30-6.10); WHITE BLOOD COUNT 4.6 10^3/uL (4.0-10.0)
[2019-09-15 15:33] LABS: ALBUMIN 3.7 GM/DL (3.2-5.2); ALT/SGPT 28 U/L (12-78); BILIRUBIN,DIRECT 0.1 MG/DL (0.0-0.2); BILIRUBIN,TOTAL 0.3 MG/DL (0.2-1.0); LIPASE 126 U/L (73-393); TOTAL PROTEIN 6.4 GM/DL (6.4-8.2)
[2019-09-15 15:35] LABS: INR 0.96; PARTIAL THROMBOPLASTIN TIME 30.1 SECONDS (25.0-38.4); PROTHROMBIN TIME 12.5 SECONDS (11.8-14.0)
[2019-09-15] MEDS ORDERED: NICOTINE 21MG/24HR 1 EA TRANSDERMAL TD ONE (16:00)
--- NOTE | 2019-09-15 17:11 | REP ---
CT ABDOMEN AND PELVIS WITH IV CONTRAST: TECHNIQUE: Axial contrast enhanced images from the lung bases to the pubic symphysis using 100 mL Isovue 370 intravenous contrast material with multiplanar reformations. Calcified granuloma is seen in the right lung base. The liver, spleen, adrenals, pancreas and kidneys are unremarkable. I see no evidence of abdominal aortic aneurysm. There is no adenopathy, free air or free fluid. No bowel wall thickening is seen. No pelvic mass is seen. Urinary bladder is not well distended and not well evaluated. There are degenerative changes of the spine. There are sigmoid diverticula present without evidence of acute diverticulitis. IMPRESSION: No acute abnormalities detected. Electronically Signed by Perez Casarez MD 09/16/2019 03:57 P
[2019-09-15 17:12] VITALS: BP 141/75
[2019-09-17 13:21] LABS: HEPATITIS B SURFACE ANTIGEN NEGATIVE (NEGATIVE)
[2019-09-17 13:49] LABS: HEPATITIS B CORE ANTIBODY IGM NEGATIVE (NEGATIVE)
[2019-09-17 13:51] LABS: HEPATITIS A ANTIBODY IGM NEGATIVE (NEGATIVE)
[2019-09-17 14:15] LABS: HEPATITIS C VIRUS ABY INDEX 0.2 INDEX (<0.8)
== END 2019-09-15 17:30 | disposition home or self-care (01) ==
LOC: M ED 13:43
DX: E87.1 Hypo-osmolality and hyponatremia (principal); D64.9 Anemia, unspecified; R10.9 Unspecified abdominal pain; I10 Essential (primary) hypertension; Z86.73 Personal history of transient ischemic attack (TIA), and cerebral infarction without residual deficits; E78.5 Hyperlipidemia, unspecified; K21.9 Gastro-esophageal reflux disease without esophagitis; Z87.442 Personal history of urinary calculi; K74.60 Unspecified cirrhosis of liver; M54.9 Dorsalgia, unspecified; F17.200 Nicotine dependence, unspecified, uncomplicated; F12.10 Cannabis abuse, uncomplicated; Z79.82 Long term (current) use of aspirin; Z79.899 Other long term (current) drug therapy
CPT/HCPCS: 74177; 80047; 80076; 81001; 83605; 83690; 85025; 85610; 85730; 86705; 86709; 86803; 86850; 86900; 86901; 87040; 87340; 96361; 96374; 96375; 99284; C9113; J2405; Q9967

== ENCOUNTER → 2019-10-31 | Outpatient (REF) | payer MEDICARE ==
[2019-10-31 19:52] LABS: ALBUMIN 3.5 GM/DL (3.2-5.2); ALT/SGPT 51 U/L (12-78); BILIRUBIN,TOTAL 0.4 MG/DL (0.2-1.0); BLOOD UREA NITROGEN 18 MG/DL (7-18); CALCIUM LEVEL 8.4 MG/DL (8.8-10.2); CARBON DIOXIDE LEVEL 26 MEQ/L (21-32); CHLORIDE LEVEL 106 MEQ/L (98-107); CHOLESTEROL LEVEL 114 MG/DL (<200); CHOLESTEROL RISK RATIO 1.727 (<5); CREATININE FOR GFR 1.08 MG/DL (0.70-1.30); GLOMERULAR FILTRATION RATE > 60.0 (>49); GLUCOSE, FASTING 95 MG/DL (70-100); HDL CHOLESTEROL 66 MG/DL (>40); HEMATOCRIT 33.8 % (42.0-52.0); HEMOGLOBIN 11.1 g/dl (13.5-17.5); LDL CHOLESTEROL 31 MG/DL (<100); MEAN CORPUSCULAR HEMOGLOBIN 33.1 pg (27.0-33.0); MEAN CORPUSCULAR HGB CONC 32.8 g/dl (32.0-36.5); MEAN CORPUSCULAR VOLUME 100.9 fl (80.0-96.0); NON-HDL-C 48 MG/DL; NT-PRO BNP 395 PG/ML (<125); PLATELET COUNT, AUTOMATED 200 10^3/uL (150-450); POTASSIUM SERUM 4.4 MEQ/L (3.5-5.1); RED BLOOD COUNT 3.35 10^6/uL (4.30-6.10); SODIUM LEVEL 136 MEQ/L (136-145); TRIGLYCERIDES LEVEL 86 MG/DL (<150); URIC ACID 4.5 MG/DL (3.5-7.2); WHITE BLOOD COUNT 6.3 10^3/uL (4.0-10.0)
== END ==
LOC: M SFHCADAM 15:51
PROVIDERS: ATTEND Family Medicine
DX: N41.0 Acute prostatitis (principal); K22.70 Barrett's esophagus without dysplasia; I11.9 Hypertensive heart disease without heart failure; E78.2 Mixed hyperlipidemia; R60.0 Localized edema

== ENCOUNTER → 2019-12-22 | Outpatient (REF) | payer MEDICARE | LOC: EEVIPCON 16:57 → M SFHCPLAZ 16:57 | PROVIDERS: ATTEND Family Medicine | DX: L03.211 Cellulitis of face (principal) | CPT/HCPCS: 87070; 87077; 87186; 87205; 96372; G0463; J0696 ==

== ENCOUNTER → 2019-12-24 | Outpatient (REF) | payer MEDICARE | LOC: M LAB REF 17:00 | PROVIDERS: ATTEND Dermatology | DX: L02.01 Cutaneous abscess of face (principal) | CPT/HCPCS: 10060; 87070; 87077; 87186; 87205; 96372; G0463; J0696 ==

== ENCOUNTER → 2020-12-07 | Outpatient (REF) | payer MEDICARE ==
[~2020-12-07] MED LIST changes: -ASPI81TA85 PO; +ASPI81TA86 PO; -COUM7.5T PO; +COUM7.5T6 PO; +LABE100T4 PO; -LABE10TAB PO; +LISI10TA22 PO; -LISI10TA4 PO
[2020-12-08 13:12] LABS: HEMATOCRIT 36.7 % (42.0-52.0); HEMOGLOBIN 12.4 g/dl (13.5-17.5); MEAN CORPUSCULAR HGB CONC 33.8 g/dl (32.0-36.5); MEAN CORPUSCULAR VOLUME 97.6 fl (80.0-96.0); PLATELET COUNT, AUTOMATED 232 10^3/uL (150-450); RED BLOOD COUNT 3.76 10^6/uL (4.30-6.10); WHITE BLOOD COUNT 7.1 10^3/uL (4.0-10.0)
[2020-12-08 13:53] LABS: ALBUMIN 4.1 GM/DL (3.2-5.2); BILIRUBIN,TOTAL 0.5 MG/DL (0.2-1.0); CALCIUM LEVEL 9.4 MG/DL (8.8-10.2); CHOLESTEROL RISK RATIO 1.725 (<5); CREATININE FOR GFR 1.5 MG/DL (0.70-1.30); GLOMERULAR FILTRATION RATE 50.2 (>49); POTASSIUM SERUM 5.1 MEQ/L (3.5-5.1); THYROID STIMULATING HORMONE 1.1 uIU/ML (0.358-3.740); TOTAL 25(OH) VITAMIN D 49.6 NG/ML (30.0-100.0); TOTAL PROTEIN 6.8 GM/DL (6.4-8.2); URIC ACID 6.1 MG/DL (3.5-7.2)
== END ==
LOC: M SFHCADAM 15:44
PROVIDERS: ATTEND Family Medicine
DX: E53.8 Deficiency of other specified B group vitamins (principal); E78.2 Mixed hyperlipidemia; E55.9 Vitamin D deficiency, unspecified; M1A.0720 Idiopathic chronic gout, left ankle and foot, without tophus (tophi)
CPT/HCPCS: 80053; 80061; 82306; 82607; 84439; 84443; 84550; 85027; G0463

== ENCOUNTER → 2021-01-06 | Outpatient (REF) | payer MEDICARE ==
[2021-01-06 17:31] LABS: CALCIUM LEVEL 8.9 MG/DL (8.8-10.2); CREATININE FOR GFR 1.51 MG/DL (0.70-1.30); GLOMERULAR FILTRATION RATE 49.8 (>49); POTASSIUM SERUM 3.9 MEQ/L (3.5-5.1)
[2021-01-06 17:36] LABS: CREATININE, URINE 94.7 MG/DL; MALB URINE SIEMENS 17.4 MG/L; MAU/CREAT RATIO 18.3 MCG/MG (0.0-30.0)
== END ==
LOC: M SFHCADAM 14:38
PROVIDERS: ATTEND Family Medicine
DX: I11.9 Hypertensive heart disease without heart failure (principal)

== ENCOUNTER → 2021-01-11 | Outpatient (CLI) | payer MEDICARE ==
--- NOTE | 2021-01-11 15:39 | REP ---
INDICATION: ZACHARY. COMPARISON: None. FINDINGS: The right kidney was not ultrasonographically visualized. Multiple ultrasonographic images of the left kidney show the left kidney to measure 10.1 x 4.5 x 5.7 cm. The renal cortical echotexture is unremarkable. There are no masses. There is good corticomedullary differentiation. There is no hydronephrosis. There are no perinephric fluid collections. IMPRESSION: 1. The nuclear cardiology technologist was unable to visualize the right kidney. 2. Normal appearing left kidney as described above. <Electronically signed by Stanislav Bran > 01/11/21 [id number]
== END ==
LOC: M RAD 14:08
PROVIDERS: ATTEND Family Medicine
DX: N17.9 Acute kidney failure, unspecified (principal)

== ENCOUNTER → 2021-02-21 | Outpatient (REF) | payer MEDICARE ==
[2021-02-21 18:19] LABS: HEMATOCRIT 37.2 % (42.0-52.0); HEMOGLOBIN 12.4 g/dl (13.5-17.5); MEAN CORPUSCULAR HEMOGLOBIN 32.4 pg (27.0-33.0); MEAN CORPUSCULAR HGB CONC 33.3 g/dl (32.0-36.5); MEAN CORPUSCULAR VOLUME 97.1 fl (80.0-96.0); PLATELET COUNT, AUTOMATED 231 10^3/uL (150-450); RED BLOOD COUNT 3.83 10^6/uL (4.30-6.10); WHITE BLOOD COUNT 6.3 10^3/uL (4.0-10.0)
[2021-02-21 18:37] LABS: HEMOGLOBIN A1c 5.4 %
[2021-02-21 18:55] LABS: ALBUMIN 3.8 GM/DL (3.2-5.2); BILIRUBIN,TOTAL 0.4 MG/DL (0.2-1.0); CALCIUM LEVEL 8.4 MG/DL (8.8-10.2); CHOLESTEROL RISK RATIO 1.549 (<5); CREATININE FOR GFR 1.3 MG/DL (0.70-1.30); GLOMERULAR FILTRATION RATE 59.2 (>49); POTASSIUM SERUM 4.5 MEQ/L (3.5-5.1); TOTAL PROTEIN 6.8 GM/DL (6.4-8.2)
== END ==
LOC: M PLALAB 15:41
PROVIDERS: ATTEND Family Medicine
DX: N18.31 Chronic kidney disease, stage 3a (principal); R73.01 Impaired fasting glucose; E78.2 Mixed hyperlipidemia; Z12.5 Encounter for screening for malignant neoplasm of prostate
CPT/HCPCS: 36415; 80053; 80061; 83036; 85027; G0103

== ENCOUNTER → 2021-03-08 | Outpatient (CLI) | payer MEDICARE | LOC: M SMT PRO 09:00 | PROVIDERS: ATTEND Urology | DX: Z53.9 Procedure and treatment not carried out, unspecified reason (principal) ==

== ENCOUNTER 2021-03-15 16:06 | Inpatient (IN) | payer MEDICARE ==
[~2021-03-15] VITALS: Ht 182.9 cm; Wt 74.2 kg
[~2021-03-15 16:06] MED LIST changes: -DICL75TA; +DICL75TA PO; -DULO1CAP6; +DULO1CAP6 PO; -SIMV20TA22; +SIMV20TA22 PO; -SPIR-10; +SPIR-10 PO
[2021-03-15 16:45] LABS: BASO % 0.3 % (0.0-1.0); EOS # 0.1 10^3/uL (0.0-0.5); HEMATOCRIT 38.5 % (42.0-52.0); LYMPH # 1.2 10^3/uL (1.5-5.0); LYMPH % 11.1 % (24.0-44.0); MEAN CORPUSCULAR HGB CONC 33.8 g/dl (32.0-36.5); MEAN CORPUSCULAR VOLUME 97.7 fl (80.0-96.0); MONO # 0.8 10^3/uL (0.0-0.8); MONO % 7.3 % (2.0-8.0); NEUTROPHILS # 8.6 10^3/uL (1.5-8.5); NEUTROPHILS % 79.8 % (36.0-66.0); PLATELET COUNT, AUTOMATED 261 10^3/uL (150-450); RED BLOOD COUNT 3.94 10^6/uL (4.30-6.10); WHITE BLOOD COUNT 10.8 10^3/uL (4.0-10.0)
--- NOTE | 2021-03-15 16:46 | REP ---
INDICATION: CHEST PAIN. COMPARISON: 12/14/2018 TECHNIQUE: Portable FINDINGS: The technique utilized in obtaining the radiograph has magnified the cardiac silhouette and accentuated the interstitial markings. The superior mediastinal structures are midline. The cardiac silhouette is unremarkable in size, shape, and position. The diaphragmatic surfaces of the lungs are regular, and the costophrenic angles are clear. The pulmonary hogan are clear. The imaged osseous structures are intact. IMPRESSION: There is no acute cardiopulmonary disease. <Electronically signed by Stanislav Bran > 03/15/21 [id number]
[2021-03-15] MEDS: HYDROMORPHONE HCL 0.5 MG/ 0.5 ML SYRINGE (J1170 PER 1) IV PRN ×2 (16:56→18:01)
[2021-03-15] MEDS ORDERED: ONDANSETRON 4MG/2ML VIAL As Ordered ONE (17:01)
[2021-03-15] MEDS ORDERED: ONDANSETRON 4MG/2ML VIAL IV ONE (17:05)
[2021-03-15 17:27] LABS: BLOOD UREA NITROGEN 19 MG/DL (7-18); CALCIUM LEVEL 9.3 MG/DL (8.8-10.2); CARBON DIOXIDE LEVEL 23 MEQ/L (21-32); CHLORIDE LEVEL 102 MEQ/L (98-107); CK-MB VALUE MASS 4.8 NG/ML (<3.6); CPK CREATINE PHOSPHOKINASE 115 U/L (39-308); CREATININE FOR GFR 1.05 MG/DL (0.70-1.30); GLOMERULAR FILTRATION RATE > 60.0 (>49); GLUCOSE, FASTING 96 MG/DL (70-100); MB/CK RELATIVE INDEX 4.17 (< OR =4); SODIUM LEVEL 132 MEQ/L (136-145); TROPONIN I < 0.02 NG/ML (< 0.10)
[2021-03-15 17:41] LABS: ALT/SGPT 23 U/L (12-78); BILIRUBIN,DIRECT < 0.1 MG/DL (0.0-0.2); BILIRUBIN,TOTAL 0.2 MG/DL (0.2-1.0); LIPASE 5514 U/L (73-393); TOTAL PROTEIN 7.4 GM/DL (6.4-8.2)
[2021-03-15 18:06] LABS: ETHYL ALCOHOL (ETHANOL) < 0.003 % (0.000-0.010)
[2021-03-15] MEDS ORDERED: NS 1,000 ML IV ONE (18:10)
--- NOTE | 2021-03-15 19:10 | REPVR ---
PROCEDURE INFORMATION: Exam: CT Abdomen And Pelvis Without Contrast Exam date and time: 03/15/2021 5:29 PM Age: 65 years old Clinical indication: Abdominal pain; Additional info: Abd pain TECHNIQUE: Imaging protocol: Computed tomography of the abdomen and pelvis without contrast. Radiation optimization: All CT scans at this facility use at least one of these dose optimization techniques: automated exposure control; mA and/or kV adjustment per patient size (includes targeted exams where dose is matched to clinical indication); or iterative reconstruction. COMPARISON: CT ABD/PEL W/IV CONTRAST ONLY 09/15/2019 3:14 PM FINDINGS: Liver: Normal. No mass. Gallbladder and bile ducts: Normal. No calcified stones. No ductal dilation. Pancreas: There is fat stranding around the pancreatic head. Multiple calcifications in the pancreatic head from chronic pancreatitis. Spleen: Normal. No splenomegaly. Adrenal glands: Normal. No mass. Kidneys and ureters: Normal. No hydronephrosis. Stomach and bowel: Evaluation of the bowel is limited secondary to lack of oral contrast. Sigmoid colonic diverticulosis. Appendix: No evidence of appendicitis. Intraperitoneal space: Unremarkable. No free air. No significant fluid collection. Vasculature: Atherosclerotic calcification of the abdominal aorta and bilateral iliac vessels. Lymph nodes: Unremarkable. No enlarged lymph nodes. Urinary bladder: Unremarkable as visualized. Reproductive: Unremarkable as visualized. Bones/joints: Degenerative changes of the spine. Soft tissues: Unremarkable. IMPRESSION: Findings concerning for acute pancreatitis. Correlation with serum enzymes. Electronically signed by: Srikanth Lr On 03/15/2021 19:10:09 PM
--- NOTE | 2021-03-15 19:34 | HPEPDOC ---
[facility] Medical History & Physical Date of Admission Mar 15, 2021 Date of Service: Mar 15, 2021 Primary Care Physician: Eduardo Lowe MD Attending Physician: JAYMIE RUSSELL MD History and Physical TIME OF SERVICE: 802pm CHIEF COMPLAINT: abdominal pain HISTORY OF PRESENT ILLNESS: is a 65 yr old who presented w c/o 15/07 in severity epigastric pain that radiates to his back and shoulders. He has had a poor appetite for the last 24H, had black stools yesterday and is also c/o slight worsening of his chronic left sided neck pain. 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 HOME MEDICATIONS: Please see below. PHYSICAL EXAMINATION: Vital Signs Date Time Temp Pulse Resp B/P (MAP) Pulse Ox O2 Delivery O2 Flow Rate FiO2 03/15/21 16:06 97.6 70 18 175/94 (121) 100 Room Air GENERAL APPEARANCE: slim build & well developed HEENT: no scleral icterus /MM pink but dry CARDIOVASCULAR: RRR/NMRG LUNGS: CTAB on RA ABDOMEN: flat / soft / not tender w percussion or palpation MUSCULOSKELETAL: NCAT / ROMIx 4 INTEGUMENT: negative Bobo-López and Cullens signs NEUROLOGICAL: CN 2-12 (except hearing) grossly intact/ speech not dysarthric PSYCHIATRIC: A&O / takes some time to comprehend what is being said and his verbal response is slow LABORATORY DATA: Total Bilirubin 0.2, Direct Bilirubin < 0.1, Aspartate Amino Transf (AST/SGOT) 15, Alanine Aminotransferase (ALT/SGPT) 23, Alkaline Phosphatase 91, Total Protein 7.4, Albumin 4.0, Albumin/Globulin Ratio 1.2, Lipase 5514H Immature Granulocyte % (Auto) 0.5, Neutrophils (%) (Auto) 79.8H, Lymphocytes (%) (Auto) 11.1L, Monocytes (%) (Auto) 7.3, Eosinophils (%) (Auto) 1.0, Basophils (%) (Auto) 0.3, Neutrophils # (Auto) 8.6H, Lymphocytes # (Auto) 1.2L, Monocytes # (Auto) 0.8, Eosinophils # (Auto) 0.1, Basophils # (Auto) 0.0, Nucleated Red Blood Cells % (auto) 0.0, Anion Gap 7L, Glomerular Filtration Rate > 60.0, Calcium Level 9.3, Total Creatine Kinase 115, Creatine Kinase MB 4.8H, Creatine Kinase MB Relative Index 4.17H, Troponin I < 0.02, Ethyl Alcohol Level < 0.003 IMAGING: Chest xray There is no acute cardiopulmonary disease. / CT abd/pelvis Findings concerning for acute pancreatitis. Correlation with serum enzymes. MICROBIOLOGY: respiratory panel neg ASSESSMENT: is a 65 yr old w a hx of alcoholic pancreatitis, TIA/CVAs, essential HTN, Barrets Esophagus, Chronic CAD, ZOFIA, remote hx of alcohol induced cardiomyopathy, dysthymia, DJD, & hearing loss who is admitted for acute pancreatitis. PLAN: 1 Acute Pancreatitis He meets the modified Margaret Criteria to diagnose acute pancreatitis Despite the normal serum ETHO his things the trigger is likely alcohol abuse Ransons Criteria to predict mortality in pts w Pancreatitis at admission = 1 point = severe sepsis unlikely Plan: admit to medical floor / per pts request advance to CLD / LR at 250 for the first 12-24H, / morphine PRN for pain 2 Melena / Suspected UGIB in the setting of alcohol abuse He may have esophageal varices, alcoholic or NSAID induced erosive gastritis The Hg may be elevated due to hemoconcentration due to poor PO intake Plan: f/u serial Hg, iron studies/ PPI w Octreotide Katie-Blatchford Score to identify low risk UGIB = 3 points = high risk GI bleed Plan: ask RNs to place 2 large bore IVs & check orthostats / start PPI 40mg IV BID for 72 H, then switch to PO after 72 H (to decrease rate of re-bleeding) / f/u iron studies, stool occult , serial Hg, H pylori stool antigen / hold ASA, Ibuprofen & Diclofenac 3 Hyponatremia Possibly due to beer potomania Plan: f/u serum osmol, Uosmol and Priscilla 4 Alcohol abuse Plan: telemetry / seizure precautions / fall precautions / Ativan per [facility] protocol/ Thiamine 100mg daily, Folic acid 1mg daily, MVI / IVF / Zofran PRN for n/v 5 hx of TIA/CVAs Plan: Simvastatin / ASA on hold 6 Resistant ? HTN Plan: Carvedilol, Furosemide, Lisinopril, Spironolactone, Nifedipine 7 Chronic CAD Plan: Aspirin on hold / Carvedilol / Simvastatin 8 ZOFIA Plan: own CPAP 9 Dysthymia Plan: Duloxetine 10 Neck pain 2/2 DJD ? Plan: Lidocaine patch / Carisoprodol 11 Tobacco Abuse Plan: smoking cessation education DVT px w SCDs (Alexis score = 0 points = pharmacological px not indicated) Dispo: home after at least 2 midnights stay Home Medications Scheduled Ascorbic Acid (Ascorbic Acid) 500 Mg Tablet, 500 MG PO DAILY Aspirin (Aspirin EC) 81 Mg Tablet.dr, 81 MG PO DAILY ON HOLD FOR PROCEDURE Carisoprodol (Carisoprodol) 350 Mg Tablet, 175 MG PO BID Cholecalciferol (Vitamin D3) (Vitamin D3) 1,000 Unit Tablet, 1,000 UNITS PO DAILY Cyanocobalamin (Vitamin B-12) (Vitamin B-12) 1,000 Mcg Tablet, 1,000 MCG PO DAILY Dextroamphetamine/Amphetamine (Adderall 20 mg Tablet) 20 Mg Tablet, 20 MG PO QAM Diclofenac Sodium (Diclofenac Sodium) 75 Mg Tab, 75 MG PO BID ON HOLD FOR PROCEDURE Duloxetine Hcl (Duloxetine HCl) 60 Mg Cap, 60 MG PO DAILY Ferrous Sulfate (Ferrous Sulfate) 325 Mg Tablet, 325 MG PO QHS Folic Acid (Folic Acid) 1 Mg Tablet, 1 MG PO DAILY Furosemide (Furosemide) 40 Mg Tab, 40 MG PO DAILY Levocetirizine Dihydrochloride (Levocetirizine Dihydrochloride) 5 Mg Tablet, 5 MG PO QHS Lidocaine (Lidocaine) 5% Adh..patch, 1 PATCH TD QHS Ensure that you have at least 12 hours of not wearing patch to leave your skin time to breathe Lisdexamfetamine Dimesylate (Vyvanse) 70 Mg Capsule, 70 MG PO QAM Lisinopril (Lisinopril) 10 Mg Tab, 10 MG PO BID Multivitamins (Thera M Plus Tablet) 1 Each Tablet, 1 TAB PO DAILY Nifedipine (Nifedipine ER) 30 Mg Tablet.er, 30 MG PO DAILY Elgin-3 Fatty Acids/Fish Oil (Fish Oil 1,000 mg Capsule) 1 Each Capsule, 1,000 MG PO DAILY Pantoprazole Sodium (Protonix) 40 Mg Tab, 40 MG PO DAILY Polyethylene Glycol 3350 (Miralax) 17 Gm Powd.pack, 1 PKT PO DAILY Simvastatin (Simvastatin) 20 Mg Tab, 20 MG PO QHS Spironolactone (Spironolactone) 25 Mg Tab, 25 MG PO DAILY Tamsulosin HCl (Flomax) 0.4 Mg Capsule, 0.4 MG PO QHS Zinc (Zinc) 50 Mg Tablet, 50 MG PO DAILY Scheduled PRN Oxycodone HCl (Oxycodone HCl) 10 Mg Tablet, 10 MG PO Q4H PRN for PAIN Triamcinolone Acet (Triamcinolone Acetonide 0.1% Crm) 80 Gm Cream..g., 1 APLCT TOP 2XW PRN for RASH APPLY TO TRUNK AND EXTREMITIES PRN Allergies Coded Allergies: No Known Allergies (Verified , 05/05/19) A-FIB/CHADSVASC A-FIB History Current/History of A-Fib/PAF?: No Current PO Anticoag Therapy: No JAYMIE RUSSELL MD Mar 15, 2021 19:34
[2021-03-15] MEDS ORDERED: MAALOX 30 ML SUSP *UDC PO PRN (19:35)
[2021-03-15] MEDS ORDERED: IBUPROFEN 400MG TAB PO PRN (19:35)
[2021-03-15] MEDS ORDERED: MOM 30ML SUSPENSION UDC PO PRN (19:35)
[2021-03-15] MEDS ORDERED: KETOROLAC 30 MG/ML 1ML VIAL IV PRN (19:35)
[2021-03-15 20:20] LABS: RSV AMPLIFICATION NEGATIVE (NEGATIVE)
[2021-03-15] MEDS ORDERED: VYVA70CA3 PO (20:47)
[2021-03-15] MEDS ORDERED: FLOM0.4C39 PO (20:47)
[2021-03-15] MEDS ORDERED: NIFE30TA50 PO (20:47)
[2021-03-15] MEDS ORDERED: OXYC10TA12 PO (20:47)
[2021-03-15] MEDS ORDERED: CARI1TAB7 PO (20:47)
[2021-03-15] MEDS ORDERED: ASCO500T PO (20:47)
[2021-03-15] MEDS ORDERED: TRIA1CR80 TOP (20:47)
[2021-03-15] MEDS ORDERED: ADDE20TA PO (20:47)
[2021-03-15] MEDS ORDERED: D31000TA2 PO (20:47)
[2021-03-15] MEDS ORDERED: FISH1000 PO (20:47)
[2021-03-15] MEDS ORDERED: CYAN100050 PO (20:47)
[2021-03-15] MEDS ORDERED: ZINC1TAB2 PO (20:47)
[2021-03-15] MEDS ORDERED: ASPI81TA26 PO (20:47)
[2021-03-15] MEDS ORDERED: LEVOTAB10 PO (20:47)
[2021-03-15] MEDS: MORPHINE 2 MG/ML 1ML VIAL (J2270) IV PRN (20:54)
[2021-03-15] MEDS ORDERED: OCTREOTIDE ACETATE 100MCG/ML VIAL (J2354 PER 25MCG) IV ONE (21:10)
--- NOTE | 2021-03-15 21:14 | ECGEPIP ---
[facility] - ED Test Date: 2021-03-15 Pat Name: DIOGENES WOOD Department: Room: - Gender: Male Shirt Sewer: ALEXX : 1955 Requested By: DIOGENES Beltran Order Number: [id number] Reading MD: Elly Rojas Measurements Intervals [place] Rate: 61 P: 1 SC: 138 QRS: 32 QRSD: 124 T: 78 QT: 430 QTc: 432 Interpretive Statements Sinus rhythm with marked sinus arrhythmia Minimal voltage criteria for LVH, may be normal variant ( [place] product ) Septal infarct , age undetermined similar 12/17/18 Electronically Signed on 03-15-2021 21:14:18 EDT by Elly Rojas
[2021-03-15 21:45] VITALS: BP 154/85
[2021-03-15 22:00] VITALS: BP 154/85
[2021-03-15 22:03] LABS: INR 0.95; PROTHROMBIN TIME 12.9 SECONDS (12.5-14.3)
[2021-03-15 22:04] LABS: PARTIAL THROMBOPLASTIN TIME 31.7 SECONDS (24.2-38.5)
[2021-03-15 22:16] LABS: PERCENT SATURATION 9.5 % (19.7-50.0)
[2021-03-15 22:23] LABS: FOLATE 15.8 NG/ML (>5.4)
[2021-03-15] MEDS: carisoprodoL 350 MG TAB PO SCH (22:30)
[2021-03-15] MEDS: PANTOPRAZOLE 40MG VIAL (C9113 PER 1) IV SCH (22:30)
[2021-03-15] MEDS: LIDOCAINE 5% (LIDODERM) PATCH TD SCH (22:30)
[2021-03-15] MEDS: THIAMINE 100 MG TAB PO SCH (22:31)
[2021-03-15] MEDS: SIMVASTATIN 20 MG TAB PO SCH (22:31)
[2021-03-15] MEDS: ACETAMINOPHEN TAB 650MG DOSE (2X325MG) PO PRN (22:31)
[2021-03-15] MEDS: TAMSULOSIN 0.4 MG CAP PO SCH (22:31)
[2021-03-15] MEDS: LR 1,000 ML IV SCH (22:31)
[2021-03-15] MEDS: OCTREOTIDE ACETATE 1,200 MCG in NS 238.8 ML IV SCH (23:37)
[2021-03-15] MEDS: ONDANSETRON 4MG/2ML VIAL IV PRN (23:48)
[2021-03-16] VITALS (7 sets, daily range): BP systolic 130–161; BP diastolic 63–84
[2021-03-16] MEDS: cefTRIAXone SOD 1 GM in D5W MINI-BAG PLUS 50 ML IV SCH (00:25)
[2021-03-16] MEDS: LR 1,000 ML IV SCH ×5 (00:25→15:46)
[2021-03-16] MEDS: MORPHINE 2 MG/ML 1ML VIAL (J2270) IV PRN ×6 (00:26→20:53)
[2021-03-16] MEDS: SUCRALFATE 1 GM TAB PO SCH ×4 (00:26→17:57)
[2021-03-16] MEDS: ONDANSETRON 4MG/2ML VIAL IV PRN (05:57)
[2021-03-16 07:02] LABS: HEMATOCRIT 31.8 % (42.0-52.0); MEAN CORPUSCULAR HEMOGLOBIN 32.5 pg (27.0-33.0); MEAN CORPUSCULAR VOLUME 95.8 fl (80.0-96.0); PLATELET COUNT, AUTOMATED 197 10^3/uL (150-450); RED BLOOD COUNT 3.32 10^6/uL (4.30-6.10); WHITE BLOOD COUNT 5.9 10^3/uL (4.0-10.0)
[2021-03-16 07:32] LABS: HEMOGLOBIN 10.8 g/dl (13.5-17.5)
[2021-03-16 07:46] LABS: ALBUMIN 3.1 GM/DL (3.2-5.2); ALT/SGPT 17 U/L (12-78); BILIRUBIN,TOTAL 0.3 MG/DL (0.2-1.0); BLOOD UREA NITROGEN 14 MG/DL (7-18); CALCIUM LEVEL 8.3 MG/DL (8.8-10.2); CARBON DIOXIDE LEVEL 22 MEQ/L (21-32); CHLORIDE LEVEL 108 MEQ/L (98-107); CREATININE FOR GFR 0.86 MG/DL (0.70-1.30); GLOMERULAR FILTRATION RATE > 60.0 (>49); GLUCOSE, FASTING 125 MG/DL (70-100); MAGNESIUM LEVEL 1.8 MG/DL (1.8-2.4); POTASSIUM SERUM 4.2 MEQ/L (3.5-5.1); SODIUM LEVEL 136 MEQ/L (136-145); TOTAL PROTEIN 5.6 GM/DL (6.4-8.2)
[2021-03-16] MEDS: **NOTE PATIENT COMMENT** MISC XX SCH (09:00)
[2021-03-16] MEDS ORDERED: PANTOPRAZOLE 40MG TAB (PROTONIX) PO SCH (09:00)
[2021-03-16] MEDS: PANTOPRAZOLE 40MG VIAL (C9113 PER 1) IV SCH ×2 (09:19→20:53)
[2021-03-16] MEDS: FUROSEMIDE 40 MG TAB PO SCH (09:19)
[2021-03-16] MEDS: DULoxetine 30 MG CAP (CYMBALTA) PO SCH (09:19)
[2021-03-16] MEDS: THIAMINE 100 MG TAB PO SCH ×2 (09:19→20:55)
[2021-03-16] MEDS: FOLIC ACID 1 MG TAB PO SCH (09:20)
[2021-03-16] MEDS: MULTIVITAMINS/MINERALS THERAP 1 TAB PO SCH (09:20)
[2021-03-16] MEDS: ADDERALL 5 MG TAB PO SCH (09:20)
[2021-03-16] MEDS: NIFEdipine 30 MG XL TAB PO SCH (09:22)
[2021-03-16] MEDS: ENOXAPARIN 40MG/0.4ML SYRINGE (J1650 PER 10MG) SC SCH (09:22)
[2021-03-16] MEDS: SPIRONOLACTONE 25 MG TAB PO SCH (09:22)
[2021-03-16] MEDS: carisoprodoL 350 MG TAB PO SCH ×2 (09:23→21:01)
[2021-03-16] MEDS: LORazepam 2 MG TAB PO PRN ×2 (12:53→16:31)
[2021-03-16] MEDS: MIRALAX *UNIT DOSE* 17GM PACKET PO SCH ×2 (16:19→20:54)
--- NOTE | 2021-03-16 16:24 | IPNPDOC ---
Text Note Date of Service The patient was seen on 03/16/21. NOTE SUBJECTIVE: Patient reports improved abdominal pain and has been ambulating with minimal pain. Is interested in advancing diet. PHYSICAL EXAMINATION: VITAL SIGNS: see below GENERAL APPEARANCE: Awake, alert, oriented x 3. NAD HEENT: Atraumatic, normocephalic. Eyes are anicteric. Mucous membranes are pink and moist CARDIOVASCULAR: NSR, regular rhythm, no noted murmurs LUNGS: CTAB ABDOMEN: Normoactive sounds, soft, nondistended. Moderate epigastric TTP with no guarding. EXTREMITIES: No lower extremity edema, no apparent rashes/petechiae. NEUROLOGICAL: Awake, speech is clear, AOx3 LABORATORY DATA: Reviewed laboratory studies IMAGING: no recent IMPRESSION: ASSESSMENT: 65 y/o male with multiple comorbidities presenting with clinical, imaging, and laboratory findings c/w pancreatitis, likely due to long standing alcohol abuse. There is concern for possible UGIB with reported history of melena, however w/u remains pending. PLAN: # Acute pancreatitis: This is patients second episode of acute pancreatitis, likely d/t alcohol abuse. Patient has pain controlled on PRN medications currently and is able to ambulate and is interested in advancing diet. Will continue hydration pending resolution of pain and monitor lipase with repeat study in the morning. Ransons criteria is low with 0-3% mortality risk. - Daily lipase - LR at 250 cc/hr, will decrease to 100cc/hr overnight in light of improving clinical status # ?melena: Patient has yet to have stool and has no blood on tissue with wiping. He has constipation intermittently at baseline. Will provide with miralax to facilitate bowel movement and follow up with occult studies. Patient may have esophageal varices and will require GI evaluation following discharge to consider EGD for further evaluation. H&H has decreased since admission, but this is anticipated in setting of aggressive fluid hydration. Will continue to monitor. Patient has 2 large bore IVs in place. Balanced risk of DVT with bleed and will continue Lovenox for DVT prophy at this time. - Occult stool - Maintain 2 large bore IVs - Initiate Ferrous Sulfate 325mg QHS - Miralax BID # iron deficiency anemia: Patient has chronic iron deficiency anemia with prior studies this year of 12.4. Iron studies today demonstrate low iron level. Will initiate iron tablets and continue to monitor with daily CBCs. - daily CBC - Ferrous Sulfate 325mg QHS - Follow up as outpatient # Constipation: Acute on chronic issue, will provide with Miralax BID with holding parameters. - Miralax BID # Alcohol use disorder: Patient drinks 3-7 beers daily. Have initiated CIWA protocol, provided with folic acid and thiamine. Will continue this. - CIUT protocol - Fall precautions - continue tele while repleting fluids - Thiamine and Folic acid daily # Hyponatremia: Likely due to poor PO intake in setting of alcohol use disorder and pancreatitis. This has resolved on AM labs - Daily BMP # CVA: Continue home medications with exception of ASA pending stool study # CAD: Continue home BP medications # ZOFIA: CPAP at home settings # Dysthymia: Continue Duloxetine, Adderall # Chronic neck/back pain - Provide with topical agents, positioning # Tobacco use disorder: - Provide with nicotine patch Dispo: Med/Surg, continuing management of acute pancreatitis Code: Full Code Diet: regular diet DVT Prophy: Lovenox Consults: PT/OT VS,Anya, I+O VS, Fishbone, I+O Laboratory Tests 03/15/21 16:22 03/16/21 06:39 Vital Signs Date Time Temp Pulse Resp B/P (MAP) Pulse Ox O2 Delivery O2 Flow Rate FiO2 03/16/21 14:00 98.1 80 18 161/82 (108) 99 Room Air I&O- Last 24 Hours up to 6 AM 03/16/21 06:00 Intake Total 1450 ml Output Total 200 ml Balance 1250 ml ALESIA MORRIS MD MPH Mar 16, 2021 16:24
[2021-03-16] MEDS: FERROUS SULFATE 325MG TAB PO SCH (20:53)
[2021-03-16] MEDS: TAMSULOSIN 0.4 MG CAP PO SCH (20:53)
[2021-03-16] MEDS: NICOTINE 14 MG/24 HR TRANSDERMAL TD SCH (20:55)
[2021-03-16] MEDS: SIMVASTATIN 20 MG TAB PO SCH (20:55)
[2021-03-16] MEDS: OCTREOTIDE ACETATE 1,200 MCG in NS 238.8 ML IV SCH (20:55)
[2021-03-16] MEDS: LIDOCAINE 5% (LIDODERM) PATCH TD SCH (20:55)
[2021-03-17] MEDS: SUCRALFATE 1 GM TAB PO SCH ×4 (00:16→17:24)
[2021-03-17] MEDS: MORPHINE 2 MG/ML 1ML VIAL (J2270) IV PRN ×3 (00:16→08:21)
[2021-03-17] MEDS: cefTRIAXone SOD 1 GM in D5W MINI-BAG PLUS 50 ML IV SCH (00:16)
[2021-03-17] MEDS: LR 1,000 ML IV SCH ×3 (03:42→21:37)
[2021-03-17 06:26] VITALS: BP 141/82
[2021-03-17 07:05] LABS: HEMATOCRIT 32.3 % (42.0-52.0); HEMOGLOBIN 10.8 g/dl (13.5-17.5); MEAN CORPUSCULAR HGB CONC 33.4 g/dl (32.0-36.5); MEAN CORPUSCULAR VOLUME 95.6 fl (80.0-96.0); PLATELET COUNT, AUTOMATED 179 10^3/uL (150-450); RED BLOOD COUNT 3.38 10^6/uL (4.30-6.10); WHITE BLOOD COUNT 5.1 10^3/uL (4.0-10.0)
[2021-03-17 07:37] LABS: ALBUMIN 3.1 GM/DL (3.2-5.2); ALT/SGPT 15 U/L (12-78); BILIRUBIN,TOTAL 0.3 MG/DL (0.2-1.0); BLOOD UREA NITROGEN 7 MG/DL (7-18); CALCIUM LEVEL 8.5 MG/DL (8.8-10.2); CARBON DIOXIDE LEVEL 26 MEQ/L (21-32); CHLORIDE LEVEL 102 MEQ/L (98-107); CREATININE FOR GFR 0.72 MG/DL (0.70-1.30); GLOMERULAR FILTRATION RATE > 60.0 (>49); GLUCOSE, FASTING 114 MG/DL (70-100); LIPASE 182 U/L (73-393); POTASSIUM SERUM 3.6 MEQ/L (3.5-5.1); SODIUM LEVEL 133 MEQ/L (136-145); TOTAL PROTEIN 5.7 GM/DL (6.4-8.2)
[2021-03-17] MEDS: ENOXAPARIN 40MG/0.4ML SYRINGE (J1650 PER 10MG) SC SCH (08:18)
[2021-03-17] MEDS: FOLIC ACID 1 MG TAB PO SCH (08:19)
[2021-03-17] MEDS: THIAMINE 100 MG TAB PO SCH ×2 (08:19→21:39)
[2021-03-17] MEDS: MIRALAX *UNIT DOSE* 17GM PACKET PO SCH ×2 (08:19→21:38)
[2021-03-17] MEDS: MULTIVITAMINS/MINERALS THERAP 1 TAB PO SCH (08:19)
[2021-03-17] MEDS: FUROSEMIDE 40 MG TAB PO SCH (08:19)
[2021-03-17] MEDS: SPIRONOLACTONE 25 MG TAB PO SCH (08:19)
[2021-03-17] MEDS: ADDERALL 5 MG TAB PO SCH (08:19)
[2021-03-17] MEDS: DULoxetine 30 MG CAP (CYMBALTA) PO SCH (08:19)
[2021-03-17] MEDS: PANTOPRAZOLE 40MG VIAL (C9113 PER 1) IV SCH ×2 (08:19→21:37)
[2021-03-17] MEDS: NIFEdipine 30 MG XL TAB PO SCH (08:20)
[2021-03-17 08:21] VITALS: BP 141/82
[2021-03-17] MEDS: carisoprodoL 350 MG TAB PO SCH ×2 (08:22→21:41)
[2021-03-17] MEDS: ONDANSETRON 4MG/2ML VIAL IV PRN (08:36)
[2021-03-17] MEDS ORDERED: ASPIRIN 81MG ENTERIC TABLET PO SCH (09:00)
[2021-03-17] MEDS: **NOTE PATIENT COMMENT** MISC XX SCH (09:14)
[2021-03-17] MEDS: oxyCODONE 5MG TAB PO PRN ×3 (12:24→21:39)
[2021-03-17 14:00] VITALS: BP 131/84
--- NOTE | 2021-03-17 14:03 | IPNPDOC ---
Text Note Date of Service The patient was seen on 03/17/21. NOTE SUBJECTIVE: Patient reports improved abdominal pain and has been ambulating with minimal pain. Continues to have poor appetite, but is hopeful that moving around with assistance will help improve appetite. Continues to have chronic back and neck pains that are not improved with PRN morphine. PHYSICAL EXAMINATION: VITAL SIGNS: see below GENERAL APPEARANCE: Awake, alert, oriented x 3. NAD HEENT: Atraumatic, normocephalic. Eyes are anicteric. Mucous membranes are pink and moist CARDIOVASCULAR: NSR, regular rhythm, no noted murmurs LUNGS: CTAB ABDOMEN: Normoactive sounds, soft, nondistended. Very mild epigastric TTP with no guarding. EXTREMITIES: No lower extremity edema, no apparent rashes/petechiae. NEUROLOGICAL: Awake, speech is clear, AOx3 LABORATORY DATA: Reviewed laboratory studies IMAGING: no recent IMPRESSION: ASSESSMENT: 65 y/o male with multiple comorbidities presenting with clinical, imaging, and laboratory findings c/w pancreatitis, likely due to long standing alcohol abuse. There is concern for possible UGIB with reported history of melena, however w/u remains pending. PLAN: # Acute pancreatitis: This is patients second episode of acute pancreatitis, likely d/t alcohol abuse. Patient has pain controlled on PRN medications. Have d/c'd IVF in setting of resuming PO intake and normalization of lipase. Will monitor one additional day to ensure appropriate PO intake and anticipate discharge to home in the morning. - Regular diet # ?melena: Occult stool was negative for blood and patient has had stable CBCs since admission. Unclear etiology of dark stools, however patient was taking TUMs/pepto bismol for abdominal discomfort in days leading up to admission which could be the likely cause of dark stools. Will continue Miralax and iron supplement. Educated patient and family that iron supplements can also darken stools and cause constipation. - Initiate Ferrous Sulfate 325mg QHS - Miralax BID # iron deficiency anemia: Patient has chronic iron deficiency anemia with prior studies this year of 12.4. Iron studies on this hospitalization demonstrate low iron level. Will initiate iron tablets and continue to monitor with daily CBCs. - daily CBC - Ferrous Sulfate 325mg QHS - Follow up as outpatient # Constipation: Acute on chronic issue, will provide with Miralax BID with holding parameters. - Miralax BID # Alcohol use disorder: Patient drinks 3-7 beers daily. Have initiated CIWA protocol, provided with folic acid and thiamine. Will continue this. In the past 24 hours 4mg of Ativan were required, most likely for chronic back pains than for acute alcohol withdrawals. - CIWA protocol - Fall precautions - continue tele - Thiamine and Folic acid daily # Hyponatremia: Likely due to poor PO intake in setting of alcohol use disorder and pancreatitis. This has resolved. - Daily BMP # CVA: Continue home medications. Resume ASA # CAD: Continue home BP medications # ZOFIA: CPAP at home settings # Dysthymia: Continue Duloxetine, Adderall # Chronic neck/back pain - Provide with topical agents, positioning # Tobacco use disorder: - Provide with nicotine patch Dispo: Med/Surg, continuing management of acute pancreatitis, anticipate to home d/c in 24 hours Code: Full Code Diet: regular diet DVT Prophy: Lovenox Consults: PT/OT VS,Fishbone, I+O VS, Fishbone, I+O Laboratory Tests 03/16/21 18:02 03/17/21 06:49 Vital Signs Date Time Temp Pulse Resp B/P (MAP) Pulse Ox O2 Delivery O2 Flow Rate FiO2 03/17/21 13:20 18 Room Air 03/17/21 12:24 96 03/17/21 08:21 66 141/82 03/17/21 06:26 97.8 I&O- Last 24 Hours up to 6 AM0 03/17/21 05:59 Intake Total 5480 ml Output Total 2300 ml Balance 3180 ml ALESIA MORRIS MD [facility] Mar 17, 2021 14:03
[2021-03-17] MEDS: ACETAMINOPHEN TAB 650MG DOSE (2X325MG) PO PRN ×2 (17:26→21:39)
[2021-03-17 20:00] VITALS: BP 135/85
[2021-03-17 20:49] VITALS: BP 135/85
[2021-03-17] MEDS: SIMVASTATIN 20 MG TAB PO SCH (21:39)
[2021-03-17] MEDS: FERROUS SULFATE 325MG TAB PO SCH (21:39)
[2021-03-17] MEDS: TAMSULOSIN 0.4 MG CAP PO SCH (21:39)
[2021-03-17] MEDS: LIDOCAINE 5% (LIDODERM) PATCH TD SCH (21:40)
[2021-03-17] MEDS: NICOTINE 14 MG/24 HR TRANSDERMAL TD SCH (21:40)
[2021-03-17] MEDS: OCTREOTIDE ACETATE 1,200 MCG in NS 238.8 ML IV SCH (21:41)
[2021-03-18] MEDS: SUCRALFATE 1 GM TAB PO SCH ×2 (00:33→05:57)
[2021-03-18] MEDS: cefTRIAXone SOD 1 GM in D5W MINI-BAG PLUS 50 ML IV SCH (00:33)
[2021-03-18] MEDS: oxyCODONE 5MG TAB PO PRN ×2 (01:48→05:59)
[2021-03-18 05:35] VITALS: BP 136/84
[2021-03-18] MEDS: LR 1,000 ML IV SCH (05:58)
[2021-03-18] MEDS: ACETAMINOPHEN TAB 650MG DOSE (2X325MG) PO PRN (05:59)
[2021-03-18 06:00] VITALS: BP 136/84
[2021-03-18] MEDS: LORazepam 2 MG TAB PO PRN (06:01)
[2021-03-18 07:14] LABS: HEMATOCRIT 32.9 % (42.0-52.0); HEMOGLOBIN 11.2 g/dl (13.5-17.5); MEAN CORPUSCULAR HEMOGLOBIN 32.6 pg (27.0-33.0); MEAN CORPUSCULAR VOLUME 95.6 fl (80.0-96.0); PLATELET COUNT, AUTOMATED 200 10^3/uL (150-450); RED BLOOD COUNT 3.44 10^6/uL (4.30-6.10); WHITE BLOOD COUNT 5.3 10^3/uL (4.0-10.0)
[2021-03-18] MEDS ORDERED: VITMTA PO (07:37)
[2021-03-18] MEDS ORDERED: MIRA1POW3 PO (07:37)
[2021-03-18] MEDS ORDERED: LIDO5TD TD (07:37)
[2021-03-18] MEDS ORDERED: FERR1TAB8 PO (07:37)
[2021-03-18] MEDS ORDERED: FOLI1TAB11 PO (07:37)
[2021-03-18 07:46] LABS: ALBUMIN 3.3 GM/DL (3.2-5.2); ALT/SGPT 16 U/L (12-78); BILIRUBIN,TOTAL 0.2 MG/DL (0.2-1.0); BLOOD UREA NITROGEN 9 MG/DL (7-18); CALCIUM LEVEL 8.6 MG/DL (8.8-10.2); CARBON DIOXIDE LEVEL 29 MEQ/L (21-32); CHLORIDE LEVEL 100 MEQ/L (98-107); GLOMERULAR FILTRATION RATE > 60.0 (>49); GLUCOSE, FASTING 93 MG/DL (70-100); POTASSIUM SERUM 3.5 MEQ/L (3.5-5.1); SODIUM LEVEL 134 MEQ/L (136-145); TOTAL PROTEIN 6.1 GM/DL (6.4-8.2)
--- NOTE | 2021-03-18 07:54 | DS.PDOC ---
Discharge Summary General Date of Admission Mar 15, 2021 at 19:31 Date of Discharge 03/18/2021 Discharge Summary PROCEDURES PERFORMED DURING STAY: [None]. ADMITTING DIAGNOSES: 1. Alcoholic pancreatitis 2. Alcohol abuse DISCHARGE DIAGNOSES: 1. Alcoholic pancreatitis, with component of chronic pancreatitis 2. Alcohol abuse 3. Poor nutritional status (albumin 3.1) 4. Chronic anemia 5. Hyponatremia, chronic 6. Tobacco use disorder 7. chronic back and neck pain 8. Constipation 9. hypertension above goal of 140/90 10. sigmoid colonic diverticulosis 11. chronic normocytic anemia COMPLICATIONS/CHIEF COMPLAINT: Pancreatitis. HISTORY OF PRESENT ILLNESS: is a 65 yr old who presented w c/o 15/07 in severity epigastric pain that radiates to his back and shoulders. He has had a poor appetite for the last 24H, had black stools yesterday and is also c/o slight worsening of his chronic left sided neck pain. HOSPITAL COURSE: Mr. Sampson was admitted for acute on chronic alcoholic pancreatitis based on CT findings, clinical exam features, symptoms, and elevated lipase. He was aggressively fluid resuscitated and self advanced diet as tolerated during the duration of his hospitalization. He does have a history of alcohol abuse disorder and regularly drinks 3-7 beers daily. This is evidenced by his poor nutritional status and is the likely etiology of his chronic pancreatitis that has led to an acute pancreatitis. He did not meet SIRS and had negative blood cultures. During his hospitalization he continued to experience his chronic neck and back pains and received topical lidocaine patches which greatly improved his pain. He also continued to experience blood pressures in the 160s systolic which are above his goal of <140/90. He has been encouraged to stop drinking and to speak with his primary care provider about his hospitalization. On day of discharge he was tolerating a regular diet and ambulating without difficulty. His serum lipase had also returned to normal. He and his were given the opportunity to ask questions about his hospitalization and he had normal vital signs and a baseline examination at time of discharge. DISCHARGE MEDICATIONS: Please see below. ALLERGIES: Please see below. PHYSICAL EXAMINATION ON DISCHARGE: VITAL SIGNS: Please see below. GENERAL APPEARANCE: Awake, alert, oriented x 3. NAD, standing and walking around in room HEENT: Atraumatic, normocephalic. Eyes are anicteric. Mucous membranes are pink and moist CARDIOVASCULAR: NSR, regular rhythm, no noted murmurs LUNGS: CTAB ABDOMEN: Normoactive sounds, soft, nondistended, no tender to palpation EXTREMITIES: No lower extremity edema, no apparent rashes/petechiae. NEUROLOGICAL: Awake, speech is clear, AOx3 LABORATORY DATA: Please see below. IMAGING: CT Abd: FINDINGS: Liver: Normal. No mass. Gallbladder and bile ducts: Normal. No calcified stones. No ductal dilation. Pancreas: There is fat stranding around the pancreatic head. Multiple calcifications in the pancreatic head from chronic pancreatitis. Spleen: Normal. No splenomegaly. Adrenal glands: Normal. No mass. Kidneys and ureters: Normal. No hydronephrosis. Stomach and bowel: Evaluation of the bowel is limited secondary to lack of oral contrast. Sigmoid colonic diverticulosis. Appendix: No evidence of appendicitis. Intraperitoneal space: Unremarkable. No free air. No significant fluid collection. Vasculature: Atherosclerotic calcification of the abdominal aorta and bilateral iliac vessels. Lymph nodes: Unremarkable. No enlarged lymph nodes. Urinary bladder: Unremarkable as visualized. Reproductive: Unremarkable as visualized. Bones/joints: Degenerative changes of the spine. Soft tissues: Unremarkable. IMPRESSION: Findings concerning for acute pancreatitis. Correlation with serum enzymes. CXR: IMPRESSION: There is no acute cardiopulmonary disease. PROGNOSIS: [good] ACTIVITY: [As tolerated]. DIET: [regular] DISCHARGE PLAN: Continue to abstain from alcohol. Speak with your primary care provider about methods for abstaining from alcohol and consider engaging with AA. You have chronic malnutrition and should speak with a dietitian about improving your nutrition status and please take prescribed vitamins. Please continue to abstain from smoking and speak with your PCM about options to facilitate this. DISPOSITION: to home, self care with . ITEMS TO FOLLOWUP ON ON OUTPATIENT: 1. findings of chronic pancreatitis 2. Nutritional status 3. alcohol abuse disorder 4. high blood pressure DISCHARGE CONDITION: [Stable]. TIME SPENT ON DISCHARGE: Greater than 30 minutes. Vital Signs/I&Os Vital Signs Date Time Temp Pulse Resp B/P (MAP) Pulse Ox O2 Delivery O2 Flow Rate FiO2 03/18/21 06:33 18 03/18/21 06:00 72 136/84 03/18/21 05:35 98.6 98 Room Air I&O- Last 24 Hours up to 6 AM 03/18/21 05:59 Intake Total 4140 ml Output Total 2925 ml Balance 1215 ml Laboratory Data Labs 24H Laboratory Tests 2 03/18/21 06:42: Nucleated Red Blood Cells % (auto) 0.0 CBC/BMP Laboratory Tests 03/18/21 06:42 Microbiology Microbiology 03/17/21 Stool Occult Blood (JEREMIAH) - Final, Complete Discharge Medications Scheduled Ascorbic Acid (Ascorbic Acid) 500 Mg Tablet, 500 MG PO DAILY, (Reported) Aspirin (Aspirin EC) 81 Mg Tablet.dr, 81 MG PO DAILY, (Reported) ON HOLD FOR PROCEDURE Carisoprodol (Carisoprodol) 350 Mg Tablet, 175 MG PO BID, (Reported) Cholecalciferol (Vitamin D3) (Vitamin D3) 1,000 Unit Tablet, 1,000 UNITS PO DAILY, (Reported) Cyanocobalamin (Vitamin B-12) (Vitamin B-12) 1,000 Mcg Tablet, 1,000 MCG PO DAILY, (Reported) Dextroamphetamine/Amphetamine (Adderall 20 mg Tablet) 20 Mg Tablet, 20 MG PO QAM, (Reported) Diclofenac Sodium (Diclofenac Sodium) 75 Mg Tab, 75 MG PO BID, (Reported) ON HOLD FOR PROCEDURE Duloxetine Hcl (Duloxetine HCl) 60 Mg Cap, 60 MG PO DAILY, (Reported) Ferrous Sulfate (Ferrous Sulfate) 325 Mg Tablet, 325 MG PO QHS Folic Acid (Folic Acid) 1 Mg Tablet, 1 MG PO DAILY Furosemide (Furosemide) 40 Mg Tab, 40 MG PO DAILY, (Reported) Levocetirizine Dihydrochloride (Levocetirizine Dihydrochloride) 5 Mg Tablet, 5 MG PO QHS, (Reported) Lidocaine (Lidocaine) 5% Adh..patch, 1 PATCH TD QHS Ensure that you have at least 12 hours of not wearing patch to leave your skin time to breathe Lisdexamfetamine Dimesylate (Vyvanse) 70 Mg Capsule, 70 MG PO QAM, (Reported) Lisinopril (Lisinopril) 10 Mg Tab, 10 MG PO BID, (Reported) Multivitamins (Thera M Plus Tablet) 1 Each Tablet, 1 TAB PO DAILY Nifedipine (Nifedipine ER) 30 Mg Tablet.er, 30 MG PO DAILY, (Reported) [place]-3 Fatty Acids/Fish Oil (Fish Oil 1,000 mg Capsule) 1 Each Capsule, 1,000 MG PO DAILY, (Reported) Pantoprazole Sodium (Protonix) 40 Mg Tab, 40 MG PO DAILY, (Reported) Polyethylene Glycol 3350 (Miralax) 17 Gm Powd.pack, 1 PKT PO DAILY Simvastatin (Simvastatin) 20 Mg Tab, 20 MG PO QHS, (Reported) Spironolactone (Spironolactone) 25 Mg Tab, 25 MG PO DAILY, (Reported) Tamsulosin HCl (Flomax) 0.4 Mg Capsule, 0.4 MG PO QHS, (Reported) Zinc (Zinc) 50 Mg Tablet, 50 MG PO DAILY, (Reported) Scheduled PRN Oxycodone HCl (Oxycodone HCl) 10 Mg Tablet, 10 MG PO Q4H PRN for PAIN, (Reported) Triamcinolone Acet (Triamcinolone Acetonide 0.1% Crm) 80 Gm Cream..g., 1 APLCT T OP 2XW PRN for RASH, (Reported) APPLY TO TRUNK AND EXTREMITIES PRN Allergies Coded Allergies: No Known Allergies (Verified , 05/05/19) ALESIA MORRIS MD [facility] Mar 18, 2021 07:54
[2021-03-18] MEDS: **NOTE PATIENT COMMENT** MISC XX SCH (09:00)
[2021-03-18] MEDS ORDERED: ASPIRIN 81MG ENTERIC TABLET PO SCH (09:00)
[2021-03-18 09:15] VITALS: BP 136/84
[2021-03-18] MEDS: ADDERALL 5 MG TAB PO SCH (09:15)
[2021-03-18] MEDS: PANTOPRAZOLE 40MG VIAL (C9113 PER 1) IV SCH (09:15)
[2021-03-18] MEDS: ENOXAPARIN 40MG/0.4ML SYRINGE (J1650 PER 10MG) SC SCH (09:15)
[2021-03-18] MEDS: FUROSEMIDE 40 MG TAB PO SCH (09:15)
[2021-03-18] MEDS: NIFEdipine 30 MG XL TAB PO SCH (09:15)
[2021-03-18] MEDS: SPIRONOLACTONE 25 MG TAB PO SCH (09:16)
[2021-03-18] MEDS: FOLIC ACID 1 MG TAB PO SCH (09:16)
[2021-03-18] MEDS: DULoxetine 30 MG CAP (CYMBALTA) PO SCH (09:16)
[2021-03-18] MEDS: MULTIVITAMINS/MINERALS THERAP 1 TAB PO SCH (09:16)
[2021-03-18] MEDS: carisoprodoL 350 MG TAB PO SCH (09:16)
[2021-03-18] MEDS: MIRALAX *UNIT DOSE* 17GM PACKET PO SCH (09:17)
== END 2021-03-18 12:45 | disposition home or self-care (01) | DRG 439 ==
LOC: M ED 16:06 → M ED INP 19:31 → M MS5PR 22:01
PROVIDERS: ADMIT Internal Medicine; ATTEND General Practice
DX: K85.20 Alcohol induced acute pancreatitis without necrosis or infection (principal); E87.1 Hypo-osmolality and hyponatremia; Z86.73 Personal history of transient ischemic attack (TIA), and cerebral infarction without residual deficits; I10 Essential (primary) hypertension; K22.70 Barrett's esophagus without dysplasia; I25.10 Atherosclerotic heart disease of native coronary artery without angina pectoris; G47.33 Obstructive sleep apnea (adult) (pediatric); D84.1 Defects in the complement system; H91.90 Unspecified hearing loss, unspecified ear; F17.210 Nicotine dependence, cigarettes, uncomplicated; F10.10 Alcohol abuse, uncomplicated; F34.1 Dysthymic disorder; M54.2 Cervicalgia; Z79.82 Long term (current) use of aspirin; Z79.899 Other long term (current) drug therapy; Z20.822 Contact with and (suspected) exposure to COVID-19; D50.9 Iron deficiency anemia, unspecified; K59.00 Constipation, unspecified

== ENCOUNTER → 2021-03-22 | Outpatient (CLI) | payer MEDICARE ==
[~2021-03-22] MED LIST changes: +ADDE20TA PO; +ASCO500T PO; +ASPI81TA26 PO; +CARI1TAB7 PO; +CYAN100050 PO; +D31000TA2 PO; +FERR1TAB8 PO; +FISH1000 PO; +FLOM0.4C39 PO; +LEVOTAB10 PO; +LIDO5TD TD; +MIRA1POW3 PO; +NIFE30TA50 PO; +OXYC10TA12 PO; +TRIA1CR80 TOP; +VITMTA PO; +VYVA70CA3 PO; +ZINC1TAB2 PO
--- NOTE | 2021-03-22 11:53 | REPPI ---
INDICATION: elevated PSA. COMPARISON: None. TECHNIQUE: Transrectal prostate sonography. FINDINGS: Trans rectal prostate sonography demonstrates unremarkable seminal vesicles. Prostate gland is heterogeneous, with calcifications and cystic changes noted. Glandular dimensions are measured at 3.9 x 2.8 x 4.8 cm with a calculated glandular volume of 27.1 ml. Transrectal sonographic guidance is provided to Dr. Handley who performed trans rectal ultrasound guided needle biopsy procedure. IMPRESSION: Transrectal prostate sonographic findings as above. <Electronically signed by Seth Mcneal > 03/22/21 [id number]
== END ==
LOC: M SMT PRO 09:53
PROVIDERS: ATTEND Urology
DX: N40.2 Nodular prostate without lower urinary tract symptoms (principal)
CPT/HCPCS: 55700; 76942; G0416

== ENCOUNTER → 2021-04-01 | Outpatient (REF) | payer MEDICARE ==
[2021-04-01 13:23] LABS: APPEARANCE, URINE CLEAR (CLEAR); BACTERIA, URINE AUTO NEGATIVE (NEGATIVE); BILIRUBIN, URINE AUTO NEGATIVE (NEGATIVE); BLOOD, URINE BLOOD 2+ (NEGATIVE); COLOR, URINE COLORLESS (YELLOW); GLUCOSE, URINE (UA) AUTO NEGATIVE (NEGATIVE); KETONE, URINE AUTO NEGATIVE (NEGATIVE); LEUKOCYTE ESTERASE, URINE AUTO NEGATIVE (NEGATIVE); NITRITE, URINE AUTO NEGATIVE (NEGATIVE); PROTEIN, URINE AUTO NEGATIVE (NEGATIVE); RBC, URINE AUTO 1 /HPF (0-3); SPECIFIC GRAVITY URINE AUTO 1.004 (1.002-1.035); SQUAMOUS EPITHELIAL CELL UR AU 0 /HPF (0-6); UROBILINOGEN, URINE AUTO 0.2 mg/dL (0.0-2.0); WBC, URINE AUTO 0 /HPF (0-3)
== END ==
LOC: M SMT 13:02
PROVIDERS: ATTEND Urology
DX: R35.0 Frequency of micturition (principal); R39.15 Urgency of urination
CPT/HCPCS: 51798; 81001; 87086; G0463

== ENCOUNTER → 2021-04-15 | Outpatient (REF) | payer MEDICARE ==
[2021-04-15 18:23] LABS: HEMOGLOBIN 10.8 g/dl (13.5-17.5); MEAN CORPUSCULAR HEMOGLOBIN 31.5 pg (27.0-33.0); MEAN CORPUSCULAR HGB CONC 32.7 g/dl (32.0-36.5); MEAN CORPUSCULAR VOLUME 96.2 fl (80.0-96.0); PLATELET COUNT, AUTOMATED 181 10^3/uL (150-450); RED BLOOD COUNT 3.43 10^6/uL (4.30-6.10)
[2021-04-15 18:53] LABS: ALT/SGPT 29 U/L (12-78); BILIRUBIN,TOTAL 0.4 MG/DL (0.2-1.0); BLOOD UREA NITROGEN 26 MG/DL (7-18); CALCIUM LEVEL 8.6 MG/DL (8.8-10.2); CARBON DIOXIDE LEVEL 25 MEQ/L (21-32); CHLORIDE LEVEL 100 MEQ/L (98-107); CREATININE FOR GFR 1.28 MG/DL (0.70-1.30); GLOMERULAR FILTRATION RATE > 60.0 (>49); GLUCOSE, FASTING 90 MG/DL (70-100); LIPASE 146 U/L (73-393); SODIUM LEVEL 132 MEQ/L (136-145); TOTAL PROTEIN 6.6 GM/DL (6.4-8.2)
== END ==
LOC: M SFHCADAM 14:27
PROVIDERS: ATTEND Family Medicine
DX: K85.20 Alcohol induced acute pancreatitis without necrosis or infection (principal); K22.70 Barrett's esophagus without dysplasia; I11.9 Hypertensive heart disease without heart failure; Z86.73 Personal history of transient ischemic attack (TIA), and cerebral infarction without residual deficits
CPT/HCPCS: 80053; 83690; 85027; G0463

== ENCOUNTER → 2021-05-13 | Outpatient (REF) | payer MEDICARE ==
[2021-05-13 17:18] LABS: APPEARANCE, URINE CLEAR (CLEAR); BACTERIA, URINE AUTO NEGATIVE (NEGATIVE); BILIRUBIN, URINE AUTO NEGATIVE (NEGATIVE); BLOOD, URINE BLOOD NEGATIVE (NEGATIVE); COLOR, URINE STRAW (YELLOW); GLUCOSE, URINE (UA) AUTO NEGATIVE (NEGATIVE); KETONE, URINE AUTO NEGATIVE (NEGATIVE); LEUKOCYTE ESTERASE, URINE AUTO NEGATIVE (NEGATIVE); NITRITE, URINE AUTO NEGATIVE (NEGATIVE); PROTEIN, URINE AUTO NEGATIVE (NEGATIVE); RBC, URINE AUTO 0 /HPF (0-3); SPECIFIC GRAVITY URINE AUTO 1.004 (1.002-1.035); SQUAMOUS EPITHELIAL CELL UR AU 0 /HPF (0-6); UROBILINOGEN, URINE AUTO 0.2 mg/dL (0.0-2.0); WBC, URINE AUTO 0 /HPF (0-3)
== END ==
LOC: M SMT 16:45
PROVIDERS: ATTEND Nurse Practitioner Family
DX: R10.9 Unspecified abdominal pain (principal)
CPT/HCPCS: 51798; 81001; 87086; G0463

== ENCOUNTER → 2021-05-26 | Outpatient (CLI) | payer MEDICARE ==
--- NOTE | 2021-05-26 15:45 | REP ---
INDICATION: LT FLANK PAIN. COMPARISON: 01/11/2021 TECHNIQUE: Real-time sonographic evaluation of the kidneys FINDINGS: Multiple ultrasonographic images of the right kidney show the right kidney to measure 9.7 x 5.8 x 6.1 cm.. The renal cortical echotexture is unremarkable. There are no masses. There is good corticomedullary differentiation. There is no hydronephrosis. There are no perinephric fluid collections. Multiple ultrasonographic images of the left kidney show the left kidney to measure 10.5 x 5.1 x 5.5 cm.. The renal cortical echotexture is unremarkable. There are no masses. There is good corticomedullary differentiation. There is no hydronephrosis. There are no perinephric fluid collections. IMPRESSION: Unremarkable renal ultrasonography. <Electronically signed by Stanislav Bran > 05/26/21 [id number]
--- NOTE | 2021-05-26 15:49 | REP ---
INDICATION: LT FLANK PAIN. COMPARISON: None. TECHNIQUE: Real-time sonographic evaluation of the urinary bladder FINDINGS: The technologist has indicated on the technologist worksheet that exam is extremely limited due to the patient's intestinal gas pattern. The pre void urinary bladder volume calculation is 100 cc. The technologist has indicated on the worksheet that the postvoid urinary bladder volume calculation could not be obtained since the bladder was either completely empty or completely obscured by bowel gas. IMPRESSION: Extremely limited exam with findings as described above. <Electronically signed by Stanislav Bran > 05/26/21 [id number]
== END ==
LOC: M RAD 14:58
PROVIDERS: ATTEND Nurse Practitioner Family
DX: R10.32 Left lower quadrant pain (principal)

== ENCOUNTER → 2021-07-28 | Outpatient (CLI) | payer MEDICARE ==
--- NOTE | 2021-07-28 14:49 | REP ---
INDICATION: SPINAL STENOSIS, LUMBAR REGION WITH NEUROGENIC CLAUDICATION. COMPARISON: None. TECHNIQUE: AP and lateral views. FINDINGS: There is advanced marginal osteophytosis seen on the right at L1-2 and particularly L2-3 and on the left at L2-3 as well. There is a moderate levoconvex thoracolumbar curve. There is moderate disc space narrowing at every level particularly posteriorly. Vertebral body height is within normal limits. Degenerative facet joint changes seen at all lumbar levels particularly L4-5 and L5-S1. IMPRESSION: Chronic changes as described above. <Electronically signed by Stanislav Bran > 07/28/21 [id number]
--- NOTE | 2021-07-28 16:25 | REP ---
INDICATION: SPINAL STENOSIS, LUMBAR REGION WITH NEUROGENIC CLAUDICATION. COMPARISON: 08/26/2016 TECHNIQUE: A single AP view of the pelvis was performed. FINDINGS: The hip joint spaces are symmetric and relatively well maintained. There is minimal symmetric joint space narrowing status quo. There is no buttressing. The femoral heads remain spherical shape and symmetric in appearance. There is no acute fracture or destructive osseous lesion. IMPRESSION: No significant change from the prior exam with findings as described above. <Electronically signed by Stanislav Bran > 07/28/21 [id number]
== END ==
LOC: M PLAIMG 13:12
PROVIDERS: ATTEND Orthopaedic Surgery
DX: M51.36 Other intervertebral disc degeneration, lumbar region (principal); M48.062 Spinal stenosis, lumbar region with neurogenic claudication; M81.0 Age-related osteoporosis without current pathological fracture

== ENCOUNTER → 2021-08-30 | Outpatient (REF) | payer MEDICARE ==
[2021-08-30 17:32] LABS: HEMATOCRIT 34.4 % (42.0-52.0); HEMOGLOBIN 11.5 g/dl (13.5-17.5); MEAN CORPUSCULAR HEMOGLOBIN 32.1 pg (27.0-33.0); MEAN CORPUSCULAR HGB CONC 33.4 g/dl (32.0-36.5); MEAN CORPUSCULAR VOLUME 96.1 fl (80.0-96.0); PLATELET COUNT, AUTOMATED 216 10^3/uL (150-450); RED BLOOD COUNT 3.58 10^6/uL (4.30-6.10); WHITE BLOOD COUNT 6.5 10^3/uL (4.0-10.0)
[2021-08-30 18:05] LABS: ALT/SGPT 22 U/L (12-78); BILIRUBIN,TOTAL 0.4 MG/DL (0.2-1.0); BLOOD UREA NITROGEN 18 MG/DL (7-18); CALCIUM LEVEL 9.1 MG/DL (8.8-10.2); CARBON DIOXIDE LEVEL 26 MEQ/L (21-32); CHLORIDE LEVEL 100 MEQ/L (98-107); FREE T4 1.15 NG/DL (0.76-1.46); GLOMERULAR FILTRATION RATE > 60.0 (>49); GLUCOSE, FASTING 92 MG/DL (70-100); LIPASE 67 U/L (73-393); POTASSIUM SERUM 4.5 MEQ/L (3.5-5.1); SODIUM LEVEL 132 MEQ/L (136-145); TOTAL PROTEIN 6.8 GM/DL (6.4-8.2)
[2021-08-30 18:07] LABS: FOLATE 18.2 NG/ML (>5.4); VITAMIN B12 LEVEL > 2000 PG/ML (247-911)
== END ==
LOC: M SFHCADAM 15:23
PROVIDERS: ATTEND Family Medicine
DX: R10.13 Epigastric pain (principal); L28.0 Lichen simplex chronicus; F10.10 Alcohol abuse, uncomplicated; R53.83 Other fatigue; Z87.19 Personal history of other diseases of the digestive system
CPT/HCPCS: 80053; 82607; 82746; 83690; 84439; 84443; 85027; 86140; 99406; G0463

== ENCOUNTER → 2021-09-01 | Outpatient (REF) | payer MEDICARE | LOC: M LAB REF 17:34 | PROVIDERS: ATTEND Physician Assistant | DX: L30.8 Other specified dermatitis (principal) | CPT/HCPCS: 11104; 88305; G0463 ==

== ENCOUNTER → 2021-09-02 | Outpatient (CLI) | payer MEDICARE ==
[~2021-09-02] MED LIST changes: +GASTROGRAFIN SOLUTION 30ML (Q9963) As Ordered ONE; +ISOVUE-370 76% 100ML VIAL As Ordered ONE
--- NOTE | 2021-09-02 19:12 | REP ---
INDICATION: EPIGASTRIC PAIN. COMPARISON: Comparison CT study March 15, 2021. TECHNIQUE: Helical scanning is acquired and 3 mm axial images re-formatted. Coronal and sagittal MPR images are generated. The CT contrast enhancement dose is 100 mL of intravenous Isovue 370. Oral contrast was also administered. FINDINGS: Preliminary digital supervisor histology radiograph is noncontributory. There is a levoconvex thoracolumbar curvature. Axial images through the lung bases demonstrate no evidence of infiltrate, atelectasis, or pleural effusion. There is a granulomatous calcification in the right lower lobe. The liver and the spleen are normal in size homogeneous in texture. No adrenal lesion is seen. The kidneys enhance symmetrically and are morphologically intact. No hydronephrosis is seen. There is a levoconvex thoracolumbar curvature. No bony destructive lesion is seen. The gallbladder is somewhat elongate and shows minimal diffuse wall thickening. There are multiple calcifications in the pancreatic head and there is moderate dilation of the main pancreatic duct. Two of the calcifications appear to be intraductal. The other pancreatic calcifications appear to be parenchymal. The findings suggest pancreatic ductal calculi. Pancreatic duct obstruction. There is some edema surrounding the pancreatic head which may reflect an element of pancreatitis. The calcifications in the body of the pancreatic parenchyma and in the pancreatic head suggest chronic pancreatitis. Common bile duct does not appear to be dilated although it is not well seen. Small and large bowel loops are unremarkable in the abdomen. Pelvic CT images show diverticulosis of the sigmoid colon. No obstructive gastrointestinal lesion is seen. IMPRESSION: Multiple calcifications throughout the pancreas. There are 2 or 3 fairly large calculi which appear to be within the main pancreatic duct and there is ductal dilation in the pancreas. The calcifications appear to be more numerous than they were on the March 15, 2021 study. There is still some edema surrounding the pancreatic head although this is improved. <Electronically signed by Seth Mcneal > 09/02/21 [id number]
== END ==
LOC: M RAD 15:42
PROVIDERS: ATTEND Family Medicine
DX: R10.13 Epigastric pain (principal); Z87.19 Personal history of other diseases of the digestive system; K86.89 Other specified diseases of pancreas
CPT/HCPCS: 74177; Q9963; Q9967

== ENCOUNTER → 2021-11-08 | Outpatient (REF) | payer MEDICARE ==
[~2021-11-08] MED LIST changes: -D31000TA2 PO; +DOXY100C3 PO; -GASTROGRAFIN SOLUTION 30ML (Q9963) As Ordered ONE; +HYDR-3363; -ISOVUE-370 76% 100ML VIAL As Ordered ONE; +OXYB10TA23; +TACR0.1O; +VITA100093 PO
[2021-11-08 16:30] LABS: HEMOGLOBIN 11.8 g/dl (13.5-17.5); MEAN CORPUSCULAR HEMOGLOBIN 31.6 pg (27.0-33.0); MEAN CORPUSCULAR HGB CONC 32.8 g/dl (32.0-36.5); MEAN CORPUSCULAR VOLUME 96.5 fl (80.0-96.0); PLATELET COUNT, AUTOMATED 203 10^3/uL (150-450); RED BLOOD COUNT 3.73 10^6/uL (4.30-6.10); WHITE BLOOD COUNT 6.5 10^3/uL (4.0-10.0)
[2021-11-08 17:11] LABS: ALBUMIN 3.5 GM/DL (3.2-5.2); ALT/SGPT 18 U/L (12-78); BILIRUBIN,TOTAL 0.2 MG/DL (0.2-1.0); BLOOD UREA NITROGEN 14 MG/DL (7-18); CARBON DIOXIDE LEVEL 28 MEQ/L (21-32); CHLORIDE LEVEL 104 MEQ/L (98-107); CREATININE FOR GFR 1.01 MG/DL (0.70-1.30); FERRITIN 31 NG/ML (26-388); FOLATE 12.6 NG/ML (>5.4); GLOMERULAR FILTRATION RATE > 60.0 (>49); GLUCOSE, FASTING 78 MG/DL (70-100); IRON (FE) 56 UG/DL (65-175); PERCENT SATURATION 17.5 % (19.7-50.0); POTASSIUM SERUM 3.8 MEQ/L (3.5-5.1); SODIUM LEVEL 136 MEQ/L (136-145); TOTAL IRON BINDING CAPACITY 320 UG/DL (250-450); TOTAL PROTEIN 6.3 GM/DL (6.4-8.2); VITAMIN B12 LEVEL > 2000 PG/ML (247-911)
[2021-11-10 10:17] LABS: ALBUMIN 3.92 GM/DL (3.29-5.55); ALBUMIN % 62.2 % (55.8-66.1); ALPHA-1-GLOBULIN % 5.3 % (2.9-4.9); ALPHA-1-GLOBULINS 0.33 GM/DL (0.17-0.41); ALPHA-2-GLOBULINS 0.76 GM/DL (0.42-0.99); BETA-1-GLOBULINS 0.38 GM/DL (0.28-0.60); BETA-1-GLOBULINS % 6.1 % (4.7-7.2); BETA-2-GLOBULINS 0.26 GM/DL (0.19-0.55); BETA-2-GLOBULINS % 4.1 % (3.2-6.5); GAMMA GLOBULIN % 10.3 % (11.1-18.8); GAMMA GLOBULINS 0.65 GM/DL (0.65-1.58)
== END ==
LOC: M SFHCADAM 15:19
PROVIDERS: ATTEND Family Medicine
DX: D64.9 Anemia, unspecified (principal); Z87.19 Personal history of other diseases of the digestive system

== ENCOUNTER → 2021-12-15 | Outpatient (REF) | payer MEDICARE ==
[2021-12-15 17:59] LABS: HEMATOCRIT 36.1 % (42.0-52.0); HEMOGLOBIN 12.1 g/dl (13.5-17.5); MEAN CORPUSCULAR HEMOGLOBIN 31.4 pg (27.0-33.0); MEAN CORPUSCULAR HGB CONC 33.5 g/dl (32.0-36.5); MEAN CORPUSCULAR VOLUME 93.8 fl (80.0-96.0); PLATELET COUNT, AUTOMATED 213 10^3/uL (150-450); RED BLOOD COUNT 3.85 10^6/uL (4.30-6.10); WHITE BLOOD COUNT 5.6 10^3/uL (4.0-10.0)
[2021-12-15 18:28] LABS: ALBUMIN 3.8 GM/DL (3.2-5.2); ALT/SGPT 18 U/L (12-78); BILIRUBIN,TOTAL 0.4 MG/DL (0.2-1.0); BLOOD UREA NITROGEN 14 MG/DL (7-18); CALCIUM LEVEL 9.8 MG/DL (8.8-10.2); CARBON DIOXIDE LEVEL 32 MEQ/L (21-32); CHLORIDE LEVEL 98 MEQ/L (98-107); CREATININE FOR GFR 0.95 MG/DL (0.70-1.30); FERRITIN 58 NG/ML (26-388); GLOMERULAR FILTRATION RATE > 60.0 (>49); GLUCOSE, FASTING 88 MG/DL (70-100); IRON (FE) 46 UG/DL (65-175); PERCENT SATURATION 15.1 % (19.7-50.0); POTASSIUM SERUM 4.2 MEQ/L (3.5-5.1); SODIUM LEVEL 134 MEQ/L (136-145); TOTAL IRON BINDING CAPACITY 304 UG/DL (250-450); TOTAL PROTEIN 6.8 GM/DL (6.4-8.2)
[2021-12-17 13:06] LABS: TISSUE TRANSGLUTAMINASE IgA <2 U/mL (0-3)
== END ==
LOC: M SFHCADAM 16:37 → M PLALAB 16:37
PROVIDERS: ATTEND Family Medicine
DX: K52.9 Noninfective gastroenteritis and colitis, unspecified (principal); D64.9 Anemia, unspecified; Z87.19 Personal history of other diseases of the digestive system

== ENCOUNTER → 2021-12-16 | Outpatient (REF) | payer MEDICARE | LOC: M SFHCPLAZ 14:48 | PROVIDERS: ATTEND Family Medicine | DX: K52.9 Noninfective gastroenteritis and colitis, unspecified (principal) ==

== ENCOUNTER → 2022-01-23 | Outpatient (CLI) | payer MEDICARE | LOC: M PLALAB 15:20 | PROVIDERS: ATTEND Nurse Practitioner Women's Health | DX: Z12.5 Encounter for screening for malignant neoplasm of prostate (principal); K86.89 Other specified diseases of pancreas | CPT/HCPCS: 36415; 80053; G0103 ==

== ENCOUNTER → 2022-01-23 | Outpatient (CLI) | payer MEDICARE ==
[2022-01-23 18:14] LABS: ALT/SGPT 25 U/L (12-78); BILIRUBIN,TOTAL 0.5 MG/DL (0.2-1.0); BLOOD UREA NITROGEN 14 MG/DL (7-18); CALCIUM LEVEL 9.9 MG/DL (8.8-10.2); CARBON DIOXIDE LEVEL 29 MEQ/L (21-32); CHLORIDE LEVEL 101 MEQ/L (98-107); CREATININE FOR GFR 1.12 MG/DL (0.70-1.30); GLOMERULAR FILTRATION RATE > 60.0 (>49); GLUCOSE, FASTING 110 MG/DL (70-100); POTASSIUM SERUM 3.7 MEQ/L (3.5-5.1); SODIUM LEVEL 136 MEQ/L (136-145); TOTAL PROTEIN 6.9 GM/DL (6.4-8.2)
== END ==
LOC: M PLALAB 15:22
PROVIDERS: ATTEND Internal Medicine Gastroenterology
DX: K86.89 Other specified diseases of pancreas (principal)

== ENCOUNTER → 2022-03-01 | Outpatient (CLI) | payer MEDICARE | LOC: M PLALAB 15:36 | PROVIDERS: ATTEND Nurse Practitioner Women's Health | DX: R97.20 Elevated prostate specific antigen [PSA] (principal); K86.1 Other chronic pancreatitis; K86.89 Other specified diseases of pancreas ==

== ENCOUNTER → 2022-03-01 | Outpatient (CLI) | payer MEDICARE ==
[2022-03-01 17:56] LABS: AMYLASE 34 U/L (25-115); LIPASE 104 U/L (73-393)
== END ==
LOC: M PLALAB 15:34
PROVIDERS: ATTEND Internal Medicine Gastroenterology
DX: K86.1 Other chronic pancreatitis (principal); K86.89 Other specified diseases of pancreas

== ENCOUNTER → 2022-03-14 | Outpatient (REF) | payer MEDICARE ==
[2022-03-14 16:51] LABS: HEMATOCRIT 34.3 % (42.0-52.0); HEMOGLOBIN 11.5 g/dl (13.5-17.5); MEAN CORPUSCULAR HEMOGLOBIN 31.7 pg (27.0-33.0); MEAN CORPUSCULAR HGB CONC 33.5 g/dl (32.0-36.5); MEAN CORPUSCULAR VOLUME 94.5 fl (80.0-96.0); PLATELET COUNT, AUTOMATED 220 10^3/uL (150-450); RED BLOOD COUNT 3.63 10^6/uL (4.30-6.10); WHITE BLOOD COUNT 5.7 10^3/uL (4.0-10.0)
[2022-03-14 17:30] LABS: ALBUMIN 3.8 GM/DL (3.2-5.2); ALT/SGPT 26 U/L (12-78); BILIRUBIN,TOTAL 0.4 MG/DL (0.2-1.0); BLOOD UREA NITROGEN 22 MG/DL (7-18); CALCIUM LEVEL 9.5 MG/DL (8.8-10.2); CARBON DIOXIDE LEVEL 28 MEQ/L (21-32); CHLORIDE LEVEL 100 MEQ/L (98-107); GLOMERULAR FILTRATION RATE > 60.0 (>49); GLUCOSE, FASTING 110 MG/DL (70-100); NT-PRO BNP 264 PG/ML (<125); POTASSIUM SERUM 3.5 MEQ/L (3.5-5.1); SODIUM LEVEL 135 MEQ/L (136-145); TOTAL PROTEIN 7.1 GM/DL (6.4-8.2)
== END ==
LOC: M SFHCADAM 14:29
PROVIDERS: ATTEND Family Medicine
DX: D64.9 Anemia, unspecified (principal); R60.0 Localized edema; E55.9 Vitamin D deficiency, unspecified; Z87.19 Personal history of other diseases of the digestive system

== ENCOUNTER → 2022-03-27 | Outpatient (CLI) | payer MEDICARE | LOC: M RAD 06:57 | PROVIDERS: ATTEND Physician Assistant | DX: R60.0 Localized edema (principal); M71.22 Synovial cyst of popliteal space [Baker], left knee ==

== ENCOUNTER → 2022-05-04 | Outpatient (REF) | payer MEDICARE ==
[~2022-05-04] MED LIST changes: -LABE100T4 PO; +LABE100T6 PO; +SIMV-253 PO; -ZOCO20TA PO
== END ==
LOC: M LAB REF 12:57
PROVIDERS: ATTEND Internal Medicine Gastroenterology
DX: K86.89 Other specified diseases of pancreas (principal); K86.1 Other chronic pancreatitis; R10.84 Generalized abdominal pain

== ENCOUNTER → 2022-06-20 | Outpatient (REF) | payer MEDICARE ==
[2022-06-21 13:23] LABS: HEMATOCRIT 38.7 % (42.0-52.0); HEMOGLOBIN 12.6 g/dl (13.5-17.5); MEAN CORPUSCULAR HGB CONC 32.6 g/dl (32.0-36.5); MEAN CORPUSCULAR VOLUME 95.1 fl (80.0-96.0); PLATELET COUNT, AUTOMATED 222 10^3/uL (150-450); RED BLOOD COUNT 4.07 10^6/uL (4.30-6.10); WHITE BLOOD COUNT 5.4 10^3/uL (4.0-10.0)
[2022-06-21 13:40] LABS: ALBUMIN 4.1 GM/DL (3.2-5.2); ALT/SGPT 22 U/L (12-78); BILIRUBIN,TOTAL 0.4 MG/DL (0.2-1.0); BLOOD UREA NITROGEN 19 MG/DL (7-18); CALCIUM LEVEL 9.2 MG/DL (8.8-10.2); CARBON DIOXIDE LEVEL 29 MEQ/L (21-32); CHLORIDE LEVEL 101 MEQ/L (98-107); CHOLESTEROL LEVEL 121 MG/DL (<200); CHOLESTEROL RISK RATIO 1.592 (<5); CREATININE FOR GFR 1.07 MG/DL (0.70-1.30); FERRITIN 28 NG/ML (26-388); FREE T4 1.01 NG/DL (0.76-1.46); GLOMERULAR FILTRATION RATE > 60.0 (>49); GLUCOSE, FASTING 89 MG/DL (70-100); HDL CHOLESTEROL 76 MG/DL (>40); IRON (FE) 48 UG/DL (65-175); LDL CHOLESTEROL 34 MG/DL (<100); NON-HDL-C 45 MG/DL; PERCENT SATURATION 11.9 % (19.7-50.0); POTASSIUM SERUM 3.6 MEQ/L (3.5-5.1); PROSTATIC SPECIFIC AG MONITOR 2.79 NG/ML (< 4.00); SODIUM LEVEL 133 MEQ/L (136-145); TOTAL IRON BINDING CAPACITY 405 UG/DL (250-450); TOTAL PROTEIN 7.2 GM/DL (6.4-8.2); TRIGLYCERIDES LEVEL 57 MG/DL (<150)
[2022-06-21 14:16] LABS: TOTAL 25(OH) VITAMIN D 36.5 NG/ML (30.0-100.0); VITAMIN B12 LEVEL 1003 PG/ML (247-911)
== END ==
LOC: M SFHCADAM 15:14
PROVIDERS: ATTEND Family Medicine
DX: R97.20 Elevated prostate specific antigen [PSA] (principal); R73.01 Impaired fasting glucose; E78.2 Mixed hyperlipidemia; E55.9 Vitamin D deficiency, unspecified; E53.8 Deficiency of other specified B group vitamins; I81 Portal vein thrombosis; N62 Hypertrophy of breast; D64.9 Anemia, unspecified

== ENCOUNTER → 2022-10-11 | Outpatient (REF) | payer MEDICARE ==
[2022-10-11 18:35] LABS: ALBUMIN 3.8 G/DL (3.2-5.2); ALKALINE PHOSPHATASE 82 U/L (46-116); ALT/SGPT 19 U/L (7.0-40); AST/SGOT 17 U/L (<34); BILIRUBIN,TOTAL 0.3 MG/DL (0.3-1.2); BLOOD UREA NITROGEN 14 MG/DL (9-23); CALCIUM LEVEL 9.5 MG/DL (8.3-10.6); CARBON DIOXIDE LEVEL 30 MMOL/L (20-31); CHLORIDE LEVEL 104 MMOL/L (98-107); CREATININE FOR GFR 1.01 MG/DL (0.70-1.30); GLOMERULAR FILTRATION RATE > 60.0 (>49); GLUCOSE, FASTING 62 MG/DL (74-106); SODIUM LEVEL 138 MMOL/L (136-145); TOTAL PROTEIN 6.7 G/DL (5.7-8.2)
== END ==
LOC: M LAB REF 17:30
PROVIDERS: ATTEND Internal Medicine Gastroenterology
DX: R10.84 Generalized abdominal pain (principal); R10.11 Right upper quadrant pain; K86.1 Other chronic pancreatitis

== ENCOUNTER → 2022-11-27 | Outpatient (CLI) | payer MEDICARE ==
[2022-11-27 17:32] LABS: BLOOD UREA NITROGEN 14 MG/DL (9-23); CALCIUM LEVEL 8.7 MG/DL (8.3-10.6); CARBON DIOXIDE LEVEL 28 MMOL/L (20-31); CHLORIDE LEVEL 102 MMOL/L (98-107); CREATININE FOR GFR 0.91 MG/DL (0.70-1.30); GLOMERULAR FILTRATION RATE > 60.0 (>49); GLUCOSE, FASTING 106 MG/DL (74-106); SODIUM LEVEL 135 MMOL/L (136-145)
== END ==
LOC: M PLALAB 15:45
PROVIDERS: ATTEND Internal Medicine Gastroenterology
DX: R10.84 Generalized abdominal pain (principal)

== ENCOUNTER → 2023-02-22 | Outpatient (REF) | payer MEDICARE ==
[~2023-02-22] MED LIST changes: -VITA500064 PO; +VITA500065 PO
[2023-02-22 18:35] LABS: ALBUMIN 4.3 G/DL (3.2-5.2); ALKALINE PHOSPHATASE 78 U/L (46-116); ALT/SGPT 19 U/L (7.0-40); AST/SGOT 17 U/L (<34); BILIRUBIN,TOTAL 0.4 MG/DL (0.3-1.2); BLOOD UREA NITROGEN 13 MG/DL (9-23); CALCIUM LEVEL 9.2 MG/DL (8.3-10.6); CARBON DIOXIDE LEVEL 30 MMOL/L (20-31); CHLORIDE LEVEL 98 MMOL/L (98-107); CREATININE FOR GFR 1.15 MG/DL (0.70-1.30); GLOMERULAR FILTRATION RATE > 60.0 (>49); GLUCOSE, FASTING 103 MG/DL (74-106); POTASSIUM SERUM 4.1 MMOL/L (3.5-5.1); SODIUM LEVEL 135 MMOL/L (136-145); TOTAL PROTEIN 7.1 G/DL (5.7-8.2)
== END ==
LOC: M LAB REF 02-13 16:56 → M PLALAB 15:00
PROVIDERS: ATTEND Internal Medicine Gastroenterology
DX: K86.1 Other chronic pancreatitis (principal); K86.89 Other specified diseases of pancreas

== ENCOUNTER → 2023-07-05 | Outpatient (CLI) | payer MEDICARE ==
[~2023-07-05] MED LIST changes: +CYAN-1 PO; -CYAN100050 PO; +GASTROGRAFIN SOLUTION 30ML As Ordered ONE; +NIFE-3 PO; -NIFE30TA50 PO
== END ==
LOC: M RAD 11:10
PROVIDERS: ATTEND Family Medicine
DX: K86.0 Alcohol-induced chronic pancreatitis (principal); Z12.2 Encounter for screening for malignant neoplasm of respiratory organs; F17.210 Nicotine dependence, cigarettes, uncomplicated; J84.10 Pulmonary fibrosis, unspecified; I25.10 Atherosclerotic heart disease of native coronary artery without angina pectoris; J43.9 Emphysema, unspecified; N20.0 Calculus of kidney
CPT/HCPCS: 71271; 74176; Q9963

== ENCOUNTER → 2023-08-21 | Outpatient (CLI) | payer MEDICARE ==
[~2023-08-21] MED LIST changes: -GASTROGRAFIN SOLUTION 30ML As Ordered ONE
[2023-08-21 19:43] LABS: ALBUMIN 3.8 G/DL (3.2-5.2); ALKALINE PHOSPHATASE 80 U/L (46-116); ALT/SGPT 20 U/L (7.0-40); AST/SGOT 14 U/L (<34); BILIRUBIN,TOTAL 0.2 MG/DL (0.3-1.2); BLOOD UREA NITROGEN 11 MG/DL (9-23); CALCIUM LEVEL 9.2 MG/DL (8.3-10.6); CARBON DIOXIDE LEVEL 30 MMOL/L (20-31); CHLORIDE LEVEL 100 MMOL/L (98-107); CREATININE FOR GFR 1.16 MG/DL (0.70-1.30); GLOMERULAR FILTRATION RATE > 60.0 (>49); GLUCOSE, FASTING 94 MG/DL (74-106); SODIUM LEVEL 134 MMOL/L (136-145); TOTAL PROTEIN 6.7 G/DL (5.7-8.2)
[2023-08-21 19:45] LABS: TOTAL 25(OH) VITAMIN D 37.1 NG/ML (20.0-100.0)
[2023-08-21 20:00] LABS: CA19-9 TUMOR MARKER,CARBOHYDRA 27.9 U/ML (<35.0)
== END ==
LOC: M PLALAB 16:51
PROVIDERS: ATTEND Internal Medicine Gastroenterology
DX: K86.1 Other chronic pancreatitis (principal); K86.89 Other specified diseases of pancreas; K64.9 Unspecified hemorrhoids; R19.7 Diarrhea, unspecified

== ENCOUNTER → 2024-03-05 | Outpatient (REF) | payer MEDICARE ==
[~2024-03-05] MED LIST changes: -MIRA1POW3 PO; +MIRA33506 PO
[2024-03-05 13:54] LABS: HEMATOCRIT 37.7 % (42.0-52.0); HEMOGLOBIN 12.5 g/dl (13.5-17.5); MEAN CORPUSCULAR HEMOGLOBIN 31.8 pg (27.0-33.0); MEAN CORPUSCULAR HGB CONC 33.2 g/dl (32.0-36.5); MEAN CORPUSCULAR VOLUME 95.9 fl (80.0-96.0); PLATELET COUNT, AUTOMATED 188 10^3/uL (150-450); RED BLOOD COUNT 3.93 10^6/uL (4.30-6.10); WHITE BLOOD COUNT 5.7 10^3/uL (4.0-10.0)
[2024-03-05 13:58] LABS: ALBUMIN 3.8 G/DL (3.2-5.2); ALKALINE PHOSPHATASE 74 U/L (46-116); ALT/SGPT 19 U/L (7.0-40); AST/SGOT 14 U/L (<34); BILIRUBIN,TOTAL 0.3 MG/DL (0.3-1.2); BLOOD UREA NITROGEN 15 MG/DL (9-23); CALCIUM LEVEL 9.1 MG/DL (8.3-10.6); CARBON DIOXIDE LEVEL 28 MMOL/L (20-31); CHLORIDE LEVEL 103 MMOL/L (98-107); CHOLESTEROL LEVEL 122 MG/DL (<200); CHOLESTEROL RISK RATIO 2.22 (<5); CREATININE FOR GFR 1.07 MG/DL (0.70-1.30); GLOMERULAR FILTRATION RATE > 60.0 (>49); GLUCOSE, FASTING 112 MG/DL (74-106); HDL CHOLESTEROL 54.8 MG/DL (>40); LDL CHOLESTEROL 52.8 MG/DL (<100); NON-HDL-C 67.2 MG/DL; POTASSIUM SERUM 3.8 MMOL/L (3.5-5.1); SODIUM LEVEL 133 MMOL/L (136-145); THYROID STIMULATING HORMONE 4.008 uIU/ML (0.55-4.78); TOTAL PROTEIN 6.4 G/DL (5.7-8.2); TRIGLYCERIDES LEVEL 72 MG/DL (<150)
[2024-03-05 14:00] LABS: FREE T4 1.27 NG/DL (0.89-1.76)
== END ==
LOC: M SFHCADAM 09:46
PROVIDERS: ATTEND Family Medicine
DX: I11.9 Hypertensive heart disease without heart failure (principal); Z86.73 Personal history of transient ischemic attack (TIA), and cerebral infarction without residual deficits; E78.2 Mixed hyperlipidemia; K86.89 Other specified diseases of pancreas

== ENCOUNTER → 2024-05-23 | Outpatient (CLI) | payer MEDICARE ==
[2024-05-23 19:11] LABS: HEMATOCRIT 39.2 % (42.0-52.0); HEMOGLOBIN 13.3 g/dl (13.5-17.5); MEAN CORPUSCULAR HEMOGLOBIN 31.4 pg (27.0-33.0); MEAN CORPUSCULAR HGB CONC 33.9 g/dl (32.0-36.5); MEAN CORPUSCULAR VOLUME 92.5 fl (80.0-96.0); PLATELET COUNT, AUTOMATED 200 10^3/uL (150-450); RED BLOOD COUNT 4.24 10^6/uL (4.30-6.10); WHITE BLOOD COUNT 6.2 10^3/uL (4.0-10.0)
[2024-05-23 19:38] LABS: ALBUMIN 3.7 G/DL (3.2-5.2); ALKALINE PHOSPHATASE 100 U/L (46-116); ALT/SGPT 18 U/L (7.0-40); AST/SGOT 17 U/L (<34); BILIRUBIN,TOTAL 0.6 MG/DL (0.3-1.2); BLOOD UREA NITROGEN 14 MG/DL (9-23); CALCIUM LEVEL 8.9 MG/DL (8.3-10.6); CARBON DIOXIDE LEVEL 31 MMOL/L (20-31); CHLORIDE LEVEL 97 MMOL/L (98-107); CREATININE FOR GFR 1.11 MG/DL (0.70-1.30); GLOMERULAR FILTRATION RATE > 60.0 (>49); GLUCOSE, FASTING 107 MG/DL (74-106); POTASSIUM SERUM 3.3 MMOL/L (3.5-5.1); SODIUM LEVEL 132 MMOL/L (136-145); TOTAL PROTEIN 6.4 G/DL (5.7-8.2)
[2024-05-23 19:40] LABS: TOTAL 25(OH) VITAMIN D 32.1 NG/ML (20.0-100.0)
== END ==
LOC: M PLALAB 16:12
PROVIDERS: ATTEND Internal Medicine Gastroenterology
DX: K86.1 Other chronic pancreatitis (principal); K86.89 Other specified diseases of pancreas; K21.9 Gastro-esophageal reflux disease without esophagitis

== ENCOUNTER → 2024-06-09 | Outpatient (CLI) | payer MEDICARE ==
[2024-06-09 17:50] LABS: HEMATOCRIT 40.3 % (42.0-52.0); HEMOGLOBIN 13.8 g/dl (13.5-17.5); MEAN CORPUSCULAR HEMOGLOBIN 31.3 pg (27.0-33.0); MEAN CORPUSCULAR HGB CONC 34.2 g/dl (32.0-36.5); MEAN CORPUSCULAR VOLUME 91.4 fl (80.0-96.0); PLATELET COUNT, AUTOMATED 228 10^3/uL (150-450); RED BLOOD COUNT 4.41 10^6/uL (4.30-6.10); WHITE BLOOD COUNT 6.6 10^3/uL (4.0-10.0)
== END ==
LOC: M PLALAB 16:29
PROVIDERS: ATTEND Internal Medicine Gastroenterology
DX: E87.6 Hypokalemia (principal)

== ENCOUNTER → 2024-07-04 | Outpatient (CLI) | payer MEDICARE ==
[2024-07-04 17:16] LABS: HEMATOCRIT 38.3 % (42.0-52.0); HEMOGLOBIN 12.7 g/dl (13.5-17.5); MEAN CORPUSCULAR HEMOGLOBIN 30.9 pg (27.0-33.0); MEAN CORPUSCULAR HGB CONC 33.2 g/dl (32.0-36.5); MEAN CORPUSCULAR VOLUME 93.2 fl (80.0-96.0); PLATELET COUNT, AUTOMATED 237 10^3/uL (150-450); RED BLOOD COUNT 4.11 10^6/uL (4.30-6.10)
[2024-07-04 17:26] LABS: HEMOGLOBIN A1c 5.4 % (4.0-6.0)
[2024-07-04 17:48] LABS: ALBUMIN 3.6 G/DL (3.2-5.2); ALKALINE PHOSPHATASE 88 U/L (46-116); ALT/SGPT 27 U/L (7.0-40); AST/SGOT 18 U/L (<34); BILIRUBIN,TOTAL 0.4 MG/DL (0.3-1.2); BLOOD UREA NITROGEN 11 MG/DL (9-23); CALCIUM LEVEL 8.9 MG/DL (8.3-10.6); CARBON DIOXIDE LEVEL 32 MMOL/L (20-31); CHLORIDE LEVEL 98 MMOL/L (98-107); GLOMERULAR FILTRATION RATE > 60.0 (>49); GLUCOSE, FASTING 98 MG/DL (74-106); POTASSIUM SERUM 3.6 MMOL/L (3.5-5.1); SODIUM LEVEL 131 MMOL/L (136-145); TOTAL PROTEIN 6.5 G/DL (5.7-8.2)
[2024-07-04 17:49] LABS: FOLATE > 24.00 NG/ML (>5.4)
[2024-07-04 17:50] LABS: FREE T4 1.36 NG/DL (0.89-1.76); THYROID STIMULATING HORMONE 2.562 uIU/ML (0.55-4.78); VITAMIN B12 LEVEL 514 PG/ML (211-911)
== END ==
LOC: M PLALAB 16:43
PROVIDERS: ATTEND Family Medicine
DX: E53.8 Deficiency of other specified B group vitamins (principal); I11.9 Hypertensive heart disease without heart failure; F41.8 Other specified anxiety disorders; K86.81 Exocrine pancreatic insufficiency; R73.01 Impaired fasting glucose; R41.3 Other amnesia; Z11.3 Encounter for screening for infections with a predominantly sexual mode of transmission; Z72.89 Other problems related to lifestyle

== ENCOUNTER 2024-07-14 14:10 | Inpatient (IN) | payer MEDICARE ==
[~2024-07-14] VITALS: Ht 180.3 cm; Wt 65.1 kg
[2024-07-14 14:35] LABS: BASO % 0.2 % (0.0-1.0); EOS % 0.2 % (0.0-3.0); HEMATOCRIT 37.1 % (42.0-52.0); HEMOGLOBIN 12.6 g/dl (13.5-17.5); LYMPH # 1.8 10^3/uL (1.5-5.0); LYMPH % 15.5 % (24.0-44.0); MEAN CORPUSCULAR VOLUME 91.2 fl (80.0-96.0); MONO # 1.2 10^3/uL (0.0-0.8); MONO % 10.1 % (2.0-8.0); NEUTROPHILS # 8.4 10^3/uL (1.5-8.5); NEUTROPHILS % 73.6 % (36.0-66.0); PLATELET COUNT, AUTOMATED 196 10^3/uL (150-450); RED BLOOD COUNT 4.07 10^6/uL (4.30-6.10); WHITE BLOOD COUNT 11.4 10^3/uL (4.0-10.0)
[2024-07-14] MEDS ORDERED: METOPROLOL 5 MG/5 ML VIAL IV SCH (14:35)
[2024-07-14] MEDS ORDERED: dilTIAZem 25MG/5ML VIAL IV STA (14:39)
[2024-07-14] MEDS: NS 1,000 ML IV ONE (14:43)
[2024-07-14] MEDS: METOPROLOL 5 MG/5 ML VIAL IV SCH (14:51)
[2024-07-14] MEDS ORDERED: ISOVUE-370 76% 100ML VIAL As Ordered ONE (14:55)
[2024-07-14 14:59] LABS: BLOOD UREA NITROGEN 16 MG/DL (9-23); CALCIUM LEVEL 9.2 MG/DL (8.3-10.6); CARBON DIOXIDE LEVEL 29 MMOL/L (20-31); CHLORIDE LEVEL 97 MMOL/L (98-107); CK-MB VALUE MASS < 1.0 NG/ML (<3.6); CPK CREATINE PHOSPHOKINASE 43 U/L (46-171); CREATININE FOR GFR 1.04 MG/DL (0.70-1.30); GLOMERULAR FILTRATION RATE > 60.0 (>49); GLUCOSE, FASTING 129 MG/DL (74-106); MB/CK RELATIVE INDEX 2.32 (< OR =4); POTASSIUM SERUM 3.2 MMOL/L (3.5-5.1); SODIUM LEVEL 131 MMOL/L (136-145)
[2024-07-14 15:29] LABS: ALBUMIN 3.2 G/DL (3.2-5.2); ALKALINE PHOSPHATASE 87 U/L (46-116); ALT/SGPT 13 U/L (7.0-40); AST/SGOT < 8 U/L (<34); BILIRUBIN,DIRECT 0.3 MG/DL (<0.4); BILIRUBIN,TOTAL 0.7 MG/DL (0.3-1.2); MAGNESIUM LEVEL 1.7 MG/DL (1.8-2.4); TOTAL PROTEIN 6.3 G/DL (5.7-8.2)
[2024-07-14 16:14] LABS: CK-MB VALUE MASS < 1.0 NG/ML (<3.6)
[2024-07-14 16:15] LABS: CPK CREATINE PHOSPHOKINASE 35 U/L (46-171); MB/CK RELATIVE INDEX 2.85 (< OR =4)
[2024-07-14] MEDS: MAG SULF 1GM/100ML (MAG RUN) 1 GM in IV 1 EA IV ONE (16:46)
[2024-07-14 16:48] LABS: LIPASE 20 U/L (12-53)
[2024-07-14] MEDS: DIGOXIN INJ 0.5 MG/2 ML AMP IV ONE (16:58)
[2024-07-14 17:04] LABS: INR 1.16; PARTIAL THROMBOPLASTIN TIME 34.1 SECONDS (24.8-34.2); PROTHROMBIN TIME 14.4 SECONDS (12.5-14.5)
[2024-07-14] MEDS: MAALOX 30 ML SUSP *UDC PO ONE (17:27)
[2024-07-14] MEDS: DIGOXIN INJ 0.5 MG/2 ML AMP IV STA ×2 (18:13→23:16)
[2024-07-14] MEDS ORDERED: OMEG100011 PO (20:07)
[2024-07-14] MEDS ORDERED: ZINC50TA14 PO (20:07)
[2024-07-14] MEDS ORDERED: CREO24CA PO (20:10)
[2024-07-14] MEDS ORDERED: FLUV25TA13 PO (20:10)
[2024-07-14] MEDS ORDERED: EQL50TAB2 PO (20:10)
[2024-07-14] MEDS ORDERED: MINO100C4 PO (20:10)
[2024-07-14] MEDS ORDERED: HOME MED LIST COMPLETE! XX SCH (20:10)
[2024-07-14] MEDS ORDERED: DIGOXIN INJ 0.5 MG/2 ML AMP IV SCH (20:20)
[2024-07-14] MEDS: APIXABAN 5 MG TAB (ELIQUIS) PO SCH (21:16)
[2024-07-14] MEDS: PANTOPRAZOLE 40MG TAB (PROTONIX) PO SCH (21:16)
[2024-07-14 21:54] VITALS: BP 142/77; TEMP 98.5; O2SAT 100
[2024-07-14] MEDS ORDERED: NICOTINE POLACRILEX 2 MG GUM PO PRN (22:25)
[2024-07-14] MEDS: oxyCODONE 5MG TAB PO PRN (23:16)
[2024-07-15] VITALS (10 sets, daily range): BP systolic 101–148; BP diastolic 55–96; TEMP 96.9–99.1; O2SAT 96–99
[2024-07-15 06:19] LABS: BASO % 0.4 % (0.0-1.0); EOS # 0.2 10^3/uL (0.0-0.5); EOS % 2.9 % (0.0-3.0); HEMOGLOBIN 11.8 g/dl (13.5-17.5); LYMPH # 1.2 10^3/uL (1.5-5.0); LYMPH % 23.8 % (24.0-44.0); MEAN CORPUSCULAR HEMOGLOBIN 30.3 pg (27.0-33.0); MEAN CORPUSCULAR HGB CONC 33.7 g/dl (32.0-36.5); MEAN CORPUSCULAR VOLUME 89.7 fl (80.0-96.0); MONO # 0.6 10^3/uL (0.0-0.8); MONO % 12.3 % (2.0-8.0); NEUTROPHILS # 3.2 10^3/uL (1.5-8.5); NEUTROPHILS % 60.6 % (36.0-66.0); PLATELET COUNT, AUTOMATED 178 10^3/uL (150-450); WHITE BLOOD COUNT 5.2 10^3/uL (4.0-10.0)
[2024-07-15 06:37] LABS: MAGNESIUM LEVEL 1.8 MG/DL (1.8-2.4)
[2024-07-15 07:45] LABS: HEMOGLOBIN A1c 5.4 % (4.0-6.0)
[2024-07-15 08:31] LABS: ALBUMIN 2.6 G/DL (3.2-5.2); ALKALINE PHOSPHATASE 74 U/L (46-116); ALT/SGPT 12 U/L (7.0-40); AST/SGOT 10 U/L (<34); BILIRUBIN,TOTAL 0.5 MG/DL (0.3-1.2); BLOOD UREA NITROGEN 11 MG/DL (9-23); CALCIUM LEVEL 8.9 MG/DL (8.3-10.6); CARBON DIOXIDE LEVEL 27 MMOL/L (20-31); CHLORIDE LEVEL 104 MMOL/L (98-107); CREATININE FOR GFR 0.95 MG/DL (0.70-1.30); GLOMERULAR FILTRATION RATE > 60.0 (>49); GLUCOSE, FASTING 111 MG/DL (74-106); POTASSIUM SERUM 2.9 MMOL/L (3.5-5.1); SODIUM LEVEL 138 MMOL/L (136-145); TOTAL PROTEIN 5.3 G/DL (5.7-8.2)
[2024-07-15] MEDS ORDERED: METOPROLOL TART 25 MG TABLET PO SCH (09:00)
[2024-07-15] MEDS: ASCORBIC ACID 500 MG TAB PO SCH (09:21)
[2024-07-15] MEDS: VITAMIN D 1,000 INTERNATIONAL UNITS TABLET PO SCH (09:21)
[2024-07-15] MEDS: DIGOXIN 0.25 MG TAB PO SCH (09:21)
[2024-07-15] MEDS: CREON-24 CAPSULE (PANCRELIPASE) PO SCH (09:21)
[2024-07-15] MEDS: PANTOPRAZOLE 40MG TAB (PROTONIX) PO SCH (09:21)
[2024-07-15] MEDS: DULoxetine 30MG CAPSULE (CYMBALTA) PO SCH (09:22)
[2024-07-15] MEDS: OMEGA-3 1000MG CAPSULE PO SCH (09:22)
[2024-07-15] MEDS: NIFEdipine 30MG XL TAB PO SCH (09:23)
[2024-07-15] MEDS: POTASSIUM CHLORIDE 10MEQ SR TABLET PO ONE ×2 (11:23→13:04)
[2024-07-15] MEDS: METOPROLOL TART 25 MG TABLET PO SCH (11:24)
[2024-07-15] MEDS: MAGNESIUM OXIDE 400MG TAB (MAG-OX) PO SCH (11:24)
[2024-07-15] MEDS: NICOTINE 21MG/24HR 1 EA TRANSDERMAL TD PRN (11:34)
[2024-07-15] MEDS: SIMVASTATIN 20 MG TAB PO SCH (21:20)
[2024-07-16 03:40] VITALS: BP 127/85; TEMP 98.3; O2SAT 98
[2024-07-16 06:02] LABS: BASO % 0.7 % (0.0-1.0); EOS # 0.2 10^3/uL (0.0-0.5); EOS % 2.6 % (0.0-3.0); HEMATOCRIT 34.7 % (42.0-52.0); HEMOGLOBIN 11.8 g/dl (13.5-17.5); LYMPH # 1.8 10^3/uL (1.5-5.0); LYMPH % 31.2 % (24.0-44.0); MEAN CORPUSCULAR HEMOGLOBIN 31.1 pg (27.0-33.0); MEAN CORPUSCULAR VOLUME 91.6 fl (80.0-96.0); MONO # 0.6 10^3/uL (0.0-0.8); MONO % 10.5 % (2.0-8.0); NEUTROPHILS # 3.1 10^3/uL (1.5-8.5); NEUTROPHILS % 54.7 % (36.0-66.0); PLATELET COUNT, AUTOMATED 197 10^3/uL (150-450); RED BLOOD COUNT 3.79 10^6/uL (4.30-6.10); WHITE BLOOD COUNT 5.7 10^3/uL (4.0-10.0)
[2024-07-16 06:22] LABS: MAGNESIUM LEVEL 1.8 MG/DL (1.8-2.4)
[2024-07-16] MEDS ORDERED: PILL CUTTER 1 EACH XX PRN (07:15)
[2024-07-16 07:25] LABS: ALBUMIN 2.5 G/DL (3.2-5.2); ALKALINE PHOSPHATASE 66 U/L (46-116); ALT/SGPT 13 U/L (7.0-40); AST/SGOT 11 U/L (<34); BILIRUBIN,TOTAL 0.3 MG/DL (0.3-1.2); BLOOD UREA NITROGEN 10 MG/DL (9-23); CALCIUM LEVEL 8.7 MG/DL (8.3-10.6); CARBON DIOXIDE LEVEL 26 MMOL/L (20-31); CHLORIDE LEVEL 106 MMOL/L (98-107); GLOMERULAR FILTRATION RATE > 60.0 (>49); GLUCOSE, FASTING 135 MG/DL (74-106); POTASSIUM SERUM 3.4 MMOL/L (3.5-5.1); SODIUM LEVEL 137 MMOL/L (136-145); TOTAL PROTEIN 5.2 G/DL (5.7-8.2)
[2024-07-16 08:00] VITALS: BP 102/61; TEMP 97.1; O2SAT 98
[2024-07-16 08:05] VITALS: BP 102/61; TEMP 97.1; O2SAT 98
[2024-07-16] MEDS ORDERED: POTA-136 PO (08:12)
[2024-07-16] MEDS ORDERED: ELIQ5TAB PO (08:12)
[2024-07-16] MEDS ORDERED: MAGN400T2 PO (08:12)
[2024-07-16] MEDS ORDERED: DIGO0.253 PO (08:12)
[2024-07-16] MEDS ORDERED: METO1TAB87 PO (08:12)
[2024-07-16] MEDS ORDERED: POTASSIUM CHLORIDE 10MEQ SR TABLET PO ONE (10:00)
[2024-07-16] MEDS: POTASSIUM CHLORIDE 10MEQ SR TABLET PO ONE (11:52)
[2024-07-16 11:57] VITALS: BP 120/76
[2024-07-16] MEDS: METOPROLOL TART 25 MG TABLET PO SCH (11:57)
[2024-07-16] MEDS ORDERED: METOPROLOL TART 25 MG TABLET PO SCH (12:00)
[2024-07-16 12:39] VITALS: BP 112/78; TEMP 97.7; O2SAT 99
[2024-07-17] MEDS ORDERED: POTASSIUM CHLORIDE 10MEQ SR TABLET PO SCH (09:00)
== END 2024-07-16 14:21 | disposition home or self-care (01) | DRG 309 ==
LOC: M ED 14:10 → M ED INP 20:16 → EEVIPCON 20:16 → M PCU 21:48
PROVIDERS: ADMIT Student in an Organized Health Care Education/Training Program; ATTEND Internal Medicine
DX: I48.91 Unspecified atrial fibrillation (principal); D68.59 Other primary thrombophilia; E87.1 Hypo-osmolality and hyponatremia; I73.00 Raynaud's syndrome without gangrene; D64.9 Anemia, unspecified; I25.10 Atherosclerotic heart disease of native coronary artery without angina pectoris; E87.6 Hypokalemia; I10 Essential (primary) hypertension; K21.9 Gastro-esophageal reflux disease without esophagitis; E83.42 Hypomagnesemia; G47.33 Obstructive sleep apnea (adult) (pediatric); F17.200 Nicotine dependence, unspecified, uncomplicated; K22.70 Barrett's esophagus without dysplasia; Z86.73 Personal history of transient ischemic attack (TIA), and cerebral infarction without residual deficits; R73.03 Prediabetes; G89.29 Other chronic pain; Z79.899 Other long term (current) drug therapy; Z79.82 Long term (current) use of aspirin; E78.5 Hyperlipidemia, unspecified

== ENCOUNTER → 2024-08-13 | Outpatient (CLI) | payer MEDICARE ==
[~2024-08-13] MED LIST changes: +CREO24CA PO; +DIGO0.253 PO; +ELIQ5TAB PO; +EQL50TAB2 PO; +FLUV25TA13 PO; +MAGN400T2 PO; +METO1TAB87 PO; +MINO100C4 PO; +OMEG100011 PO; +POTA-136 PO; +ZINC50TA14 PO
== END ==
LOC: M RAD 14:39
PROVIDERS: ATTEND Family Medicine
DX: Z12.2 Encounter for screening for malignant neoplasm of respiratory organs (principal); F17.210 Nicotine dependence, cigarettes, uncomplicated

== ENCOUNTER → 2024-08-21 | Outpatient (REF) | payer MEDICARE ==
[2024-08-21 19:47] LABS: HEMATOCRIT 36.9 % (42.0-52.0); MEAN CORPUSCULAR HEMOGLOBIN 30.6 pg (27.0-33.0); MEAN CORPUSCULAR HGB CONC 32.5 g/dl (32.0-36.5); MEAN CORPUSCULAR VOLUME 94.1 fl (80.0-96.0); PLATELET COUNT, AUTOMATED 179 10^3/uL (150-450); RED BLOOD COUNT 3.92 10^6/uL (4.30-6.10); WHITE BLOOD COUNT 5.6 10^3/uL (4.0-10.0)
[2024-08-21 20:08] LABS: ALBUMIN 3.9 G/DL (3.2-5.2); ALKALINE PHOSPHATASE 87 U/L (40-129); ALT/SGPT 18 U/L (7.0-40); AST/SGOT 13 U/L (<34); BILIRUBIN,TOTAL 0.3 MG/DL (0.3-1.2); BLOOD UREA NITROGEN 18 MG/DL (9-23); CALCIUM LEVEL 9.2 MG/DL (8.3-10.6); CARBON DIOXIDE LEVEL 29 MMOL/L (20-31); CHLORIDE LEVEL 102 MMOL/L (98-107); CREATININE FOR GFR 1.17 MG/DL (0.70-1.30); DIGOXIN LEVEL 0.4 NG/ML (0.8-2.0); GLOMERULAR FILTRATION RATE > 60.0 (>49); GLUCOSE, FASTING 95 MG/DL (74-106); SODIUM LEVEL 138 MMOL/L (136-145); TOTAL PROTEIN 6.6 G/DL (5.7-8.2)
[2024-08-21 20:14] LABS: FREE T4 1.33 NG/DL (0.89-1.76); THYROID STIMULATING HORMONE 2.559 uIU/ML (0.55-4.78)
== END ==
LOC: M SFHCADAM 14:50
PROVIDERS: ATTEND Physician Assistant
DX: I48.0 Paroxysmal atrial fibrillation (principal); R60.0 Localized edema; F41.8 Other specified anxiety disorders

== ENCOUNTER → 2024-09-19 | Outpatient (CLI) | payer MEDICARE | LOC: M RAD 12:57 | PROVIDERS: ATTEND Physician Assistant | DX: N50.812 Left testicular pain (principal); I86.1 Scrotal varices; N50.3 Cyst of epididymis ==

== ENCOUNTER → 2024-11-10 | Outpatient (REF) | payer MEDICARE ==
[~2024-11-10] MED LIST changes: +CARI-555 PO; -CARI1TAB7 PO
== END ==
LOC: M SFHCDERM 17:34
PROVIDERS: ATTEND Physician Assistant
DX: L57.0 Actinic keratosis (principal)

== ENCOUNTER → 2024-12-25 | Outpatient (REF) | payer MEDICARE ==
[~2024-12-25] MED LIST changes: +FLUV25TA11 PO; -FLUV25TA13 PO
[2024-12-25 18:22] LABS: BASO % 0.7 % (0.0-1.0); EOS # 0.3 10^3/uL (0.0-0.5); HEMATOCRIT 41.3 % (42.0-52.0); HEMOGLOBIN 13.3 g/dl (13.5-17.5); LYMPH # 1.3 10^3/uL (1.5-5.0); LYMPH % 21.6 % (24.0-44.0); MEAN CORPUSCULAR HEMOGLOBIN 30.6 pg (27.0-33.0); MEAN CORPUSCULAR HGB CONC 32.2 g/dl (32.0-36.5); MEAN CORPUSCULAR VOLUME 95.2 fl (80.0-96.0); MONO # 0.6 10^3/uL (0.0-0.8); NEUTROPHILS # 3.6 10^3/uL (1.5-8.5); NEUTROPHILS % 62.4 % (36.0-66.0); PLATELET COUNT, AUTOMATED 202 10^3/uL (150-450); RED BLOOD COUNT 4.34 10^6/uL (4.30-6.10); WHITE BLOOD COUNT 5.8 10^3/uL (4.0-10.0)
[2024-12-25 18:35] LABS: ERYTHROCYTE SEDIMENTATION RATE 3 mm/hr (0-20)
[2024-12-25 18:39] LABS: COMPLEMENT C3 110.3 MG/DL (90.0-170.0); COMPLEMENT C4 19.8 MG/DL (12-36)
[2024-12-25 18:40] LABS: ALBUMIN 3.8 G/DL (3.2-5.2); ALKALINE PHOSPHATASE 84 U/L (40-129); ALT/SGPT 29 U/L (7.0-40); AST/SGOT 18 U/L (<34); BILIRUBIN,TOTAL 0.3 MG/DL (0.3-1.2); BLOOD UREA NITROGEN 18 MG/DL (9-23); C REACTIVE PROTEIN QUANTITATIV < 0.50 MG/DL (<1.0); CALCIUM LEVEL 9.1 MG/DL (8.3-10.6); CARBON DIOXIDE LEVEL 29 MMOL/L (20-31); CHLORIDE LEVEL 101 MMOL/L (98-107); GLOMERULAR FILTRATION RATE > 60.0 (>49); GLUCOSE, FASTING 96 MG/DL (74-106); POTASSIUM SERUM 4.3 MMOL/L (3.5-5.1); SODIUM LEVEL 137 MMOL/L (136-145); TOTAL PROTEIN 6.5 G/DL (5.7-8.2)
== END ==
LOC: M SFHCADAM 11:13
PROVIDERS: ATTEND Physician Assistant
DX: R23.3 Spontaneous ecchymoses (principal)

== ENCOUNTER → 2025-01-09 | Outpatient (CLI) | payer MEDICARE ==
[2025-01-09 15:56] LABS: PERCENT SATURATION 23.6 % (19.7-50.0)
== END ==
LOC: M LAB 14:57
PROVIDERS: ATTEND Family Medicine
DX: D64.9 Anemia, unspecified (principal)

== ENCOUNTER → 2025-01-12 | Outpatient (CLI) | payer MEDICARE ==
[2025-01-12 16:50] LABS: FERRITIN 21.8 NG/ML (10.5-307.3)
[2025-01-12 16:51] LABS: FREE T4 1.42 NG/DL (0.89-1.76); THYROID STIMULATING HORMONE 2.125 uIU/ML (0.55-4.78)
[2025-01-14 10:33] LABS: PROTEIN, TOTAL SO 5.9 g/dL (6.1-8.1)
== END ==
LOC: M LAB 15:14
PROVIDERS: ATTEND Family Medicine
DX: R41.82 Altered mental status, unspecified (principal); D64.9 Anemia, unspecified

== ENCOUNTER → 2025-01-20 | Outpatient (CLI) | payer MEDICARE | LOC: M PLAIMG 14:45 | PROVIDERS: ATTEND Family Medicine | DX: Z00.00 Encounter for general adult medical examination without abnormal findings (principal) ==

== ENCOUNTER → 2025-02-19 | Outpatient (REF) | payer MEDICARE ==
[~2025-02-19] MED LIST changes: -FLOM0.4C39 PO; +LIDO1ADH93 TD; -LIDO5DIS41 TD; +TAMS-18 PO
== END ==
LOC: M LAB REF 16:43
PROVIDERS: ATTEND Internal Medicine Gastroenterology
DX: K86.1 Other chronic pancreatitis (principal); K21.9 Gastro-esophageal reflux disease without esophagitis; I81 Portal vein thrombosis; K86.89 Other specified diseases of pancreas; R19.7 Diarrhea, unspecified

== ENCOUNTER → 2025-07-02 | Outpatient (CLI) | payer MEDICARE ==
[~2025-07-02] MED LIST changes: -EQL50TAB2 PO; +GABA-1172 PO; +VITA-243 PO; +VITA1TAB82 PO; +VYVA30CH PO; +VYVA50CH PO
== END ==
LOC: M CARPUL 09:11
PROVIDERS: ATTEND Internal Medicine Cardiovascular Disease
DX: I11.9 Hypertensive heart disease without heart failure (principal); I48.0 Paroxysmal atrial fibrillation; I27.81 Cor pulmonale (chronic)

== ENCOUNTER → 2025-08-05 | Outpatient (CLI) | payer MEDICARE | LOC: M SLEEP HO 07-23 11:05 | PROVIDERS: ATTEND Internal Medicine Cardiovascular Disease | DX: I27.81 Cor pulmonale (chronic) (principal); G47.33 Obstructive sleep apnea (adult) (pediatric) ==

== ENCOUNTER → 2025-08-18 | Outpatient (CLI) | payer MEDICARE ==
[~2025-08-18] VITALS: Ht 180.3 cm; Wt 71.7 kg
[~2025-08-18] MED LIST changes: +LIDOCAINE 2% 100 MG/5 ML SDV (FOR ANES.) ONE; +MIDAZOLAM INJ 2 MG/2 ML VIAL As Ordered ONE
[2025-08-18 12:45] VITALS: TEMP 97.7
[2025-08-18 15:20] VITALS: BP 148/73; O2SAT 100
== END ==
LOC: M RAD 12:10
PROVIDERS: ATTEND Family Medicine
DX: R41.82 Altered mental status, unspecified (principal); I48.91 Unspecified atrial fibrillation; G47.30 Sleep apnea, unspecified; Z79.82 Long term (current) use of aspirin; Z79.891 Long term (current) use of opiate analgesic; Z79.899 Other long term (current) drug therapy; Z86.73 Personal history of transient ischemic attack (TIA), and cerebral infarction without residual deficits
CPT/HCPCS: 70551; J2250

== ENCOUNTER → 2025-08-19 | Outpatient (CLI) | payer MEDICARE ==
[~2025-08-19] MED LIST changes: -LIDOCAINE 2% 100 MG/5 ML SDV (FOR ANES.) ONE; -MIDAZOLAM INJ 2 MG/2 ML VIAL As Ordered ONE
== END ==
LOC: M ADAMS 15:13
PROVIDERS: ATTEND Family Medicine
DX: M19.032 Primary osteoarthritis, left wrist (principal); M65.932 Unspecified synovitis and tenosynovitis, left forearm

== ENCOUNTER → 2025-08-19 | Outpatient (REF) | payer MEDICARE ==
[2025-08-19 17:43] LABS: PLATELET COUNT, AUTOMATED 214 10^3/uL (150-450)
[2025-08-19 17:46] LABS: ESTIMATED AVERAGE GLUCOSE 120.0 MG/DL (60-110)
[2025-08-19 17:52] LABS: CHOLESTEROL LEVEL 114.0 MG/DL (<200); CHOLESTEROL RISK RATIO 1.79 (<5); LDL CHOLESTEROL 38.4 MG/DL (<100); NON-HDL-C 50.4 MG/DL; TRIGLYCERIDES LEVEL 60.0 MG/DL (<150)
[2025-08-19 17:53] LABS: FREE T4 1.31 NG/DL (0.89-1.76)
== END ==
LOC: M SFHCADAM 15:03
PROVIDERS: ATTEND Family Medicine
DX: Z86.73 Personal history of transient ischemic attack (TIA), and cerebral infarction without residual deficits (principal); I11.9 Hypertensive heart disease without heart failure; Z87.19 Personal history of other diseases of the digestive system; M65.932 Unspecified synovitis and tenosynovitis, left forearm; D64.9 Anemia, unspecified; R41.82 Altered mental status, unspecified; Z79.899 Other long term (current) drug therapy